=== PATIENT | male | born 2000 | race Caucasian/White ===

== ENCOUNTER 2019-11-13 06:19 | Emergency (ER) | payer OTHER ==
--- OUTSIDE RECORDS SUMMARY | 2019-11-13 06:20 | XMS REPORT | Continuity of Care Document ---
:2000 Author Organization [facility] t Address [address] [place] [address] Care Team Providers Name Role Phone Jenniffer FERMIN Attending Clinician Problems This patient has no known problems. Allergies, Adverse Reactions, Alerts This patient has no known allergies or adverse reactions. Medications This patient has no known medications. Procedures This patient has no known procedures. Encounters Start End Encounter Admission Attending Care Care Encounter Source Date/Time Date/Time Type Type Clinicians Facility Department ID 2019-08-11 2019-08-[id number] 09:30:03 23:59:00 Encounter [facility] [id number] MEDICAL [id number] [place] [id number] Results Test Description Test Time Test Comments Results Result Comments Source Thyroid Stimulating Hormone 2019-08-12 08:27:37 Test Item Value Reference Range Interpretation Comme nts TSH (test code = TSH) 1.190 mIU/mL 0.270-4.200 Lipid [id number] 08:27:26 Test Item Value Reference Range Interpretation Comments Cholesterol Total 151 mg/dL 0-200 RISK OF HE ART (test code = DISEASEPublishe d by Cholesterol Total) [place] [employer] Norma lyte Optimal Borderl ine Increased RiskC HOL <200 200-239 >2 40TRIG <150 150-199 >2 00HDL Male >60 <40H DL Female >60 <5 0LDL <100 130-159 >1 60LDL Near optimal is 100-129 Triglycerides (test 100 mg/dL 9-200 code = Triglycerides) HDL (test code = HDL) 72 mg/dL 40-60 H LDL (test code = LDL) 59 mg/dL 0-130 The eq uation being used in this calcula tion is LDL = (Chol - H DL) - (Trig / 5) VLDL (test code = 20 mg/dL 5-40 The equati on being used VLDL) in this calcula tion is VLDL = Trig / 5 Chol/HDL (test code = 2.1 ratio 0.0-5.0 Chol/HDL) LDL/HDL Ratio (test 1 N The equa tion being used code = LDL/HDL Ratio) in thi s calculation is LDL/HDL Ratio=L DL Calc/HDL Chol RPR [id number] 11:15:55 Test Item Value Reference Range Interpretation Comments RPR Qual (test code = RPR Qual) Non-Reactive Non-Reactive Reactive Control (test code = Reactive Reactive Control) Weak Reactive Control (test Weak Reactive code = Weak Reactive Control) Non-Reactive Control (test code Non-Reactive = Non-Reactive Control) Lot # (test code = Lot #) [id number] Expiration Dt (test code = 05-29-20 N Expiration Dt) Alcohol [id number] 05:20:46 Test Item Value Reference Range Interpretation Comments Ethanol Level (test 0.11 g/dL 0.00-0.01 H Intoxica hardeep 0.080 g/dL code = Ethanol or more Level) Ethanol Inst (test 113 N code = Ethanol Inst) IG [id number] 02:34:13 Test Item Value Reference Range Interpretation Comments IG (test code = IG) 0.3 % 0.0-5.0 IG Abs (test code = IG Abs) 0 x10 N Complete Blood Count with [id number] 02:34:12 Test Item Value Reference Range Interpretation Comments WBC (test code = WBC) 7.2 x10 4.4-10.5 RBC (test code = RBC) 4.38 x10 4.10-5.70 Hgb (test code = Hgb) 14.5 g/dL 13.4-17.4 MCV (test code = MCV) 97.30 fL 80.00-100.00 Hct (test code = Hct) 42.6 % 38.7-52.0 MCHC (test code = 34.00 g/dL 32.00-37.50 MCHC) RDW CV (test code = 12.4 % 11.5-14.5 RDW CV) MCH (test code = MCH) 33.1 pg 27.0-32.5 H Platelets (test code = 317.0 x10 140.0-440.0 Platelets) MPV (test code = MPV) 10.2 fL N Slide Review (test Auto Auto Result cr eated by code = Slide Review) GL_SJM_ SLIDE_REV_AUTO nRBC (test code = 0 N nRBC) NRBC Abs (test code = 0.00 x10 N NRBC Abs) IPF (test code = IPF) 0 % N Automated [id number] 02:34:12 Test Item Value Reference Range Interpretation Comments Neutro Auto (test code = Neutro 53.1 % 36.0-70.0 Auto) Lymph Auto (test code = Lymph Auto) 33.6 % 12.0-44.0 [place] Auto (test code = [place] Auto) 11.6 % 0.0-11.0 H Eos, Auto (test code = Eos, Auto) 0.4 % 0.0-7.0 Basophil Auto (test code = Basophil 1.0 % 0.0-2.0 Auto) Neutro Absolute (test code = Neutro 3.8 x10 1.6-7.4 Absolute) Lymph Absolute (test code = Lymph 2.41 x10 .50-4.60 Absolute) [place] Absolute (test code = [place] .83 x10 .00-1.20 Absolute) Eos Absolute (test code = Eos 0.03 x10 0.00-0.74 Absolute) Baso Absolute (test code = Baso 0.07 x10 0.00-0.21 Absolute) Comprehensive Metabolic [id number] 02:24:27 Test Item Value Reference Range Interpretation Comments Sodium Level (test code = Sodium 144.0 mmol/L 135.0-145.0 Level) Potassium Level (test code = 4.3 mmol/L 3.5-5.1 Potassium Level) Chloride Level (test code = 103 mmol/L 98-105 Chloride Level) CO2 (test code = CO2) 23 mmol/L 22-29 Anion Gap (test code = Anion 18 mmol/L 7-16 H Gap) BUN (test code = BUN) 11.80 mg/dL 6.00-20.00 Creatinine Level (test code = 0.70 mg/dL 0.70-1.20 Creatinine Level) BUN/Creat Ratio (test code = 17 N BUN/Creat Ratio) Glucose Level (test code = 98 mg/dL 70-115 Glucose Level) Calcium Level (test code = 9.5 mg/dL 8.3-10.5 Calcium Level) Alk Phos (test code = Alk Phos) 95 U/L 40-129 Bilirubin Total (test code = 0.2 mg/dL 0.1-0.9 Bilirubin Total) Albumin Level (test code = 4.9 g/dL 3.5-5.2 Albumin Level) Protein Total (test code = 7.8 g/dL 6.4-8.3 Protein Total) ALT (test code = ALT) 19 U/L 1-41 AST (test code = AST) 37 U/L 1-40 Globulin (test code = Globulin) 2.9 g/dL 2.9-3.1 A/G Ratio (test code = A/G 1.7 ratio N Ratio) Comprehensive Metabolic [id number] 02:24:27 Test Item Value Reference Range Interpretation Comments Sodium Level (test 144.0 mmol/L 135.0-145.0 code = Sodium Level) Potassium Level 4.3 mmol/L 3.5-5.1 (test code = Potassium Level) Chloride Level (test 103 mmol/L 98-105 code = Chloride Level) CO2 (test code = 23 mmol/L 22-29 CO2) Anion Gap (test code 18 mmol/L 7-16 H = Anion Gap) BUN (test code = 11.80 mg/dL 6.00-20.00 BUN) Creatinine Level 0.70 mg/dL 0.70-1.20 (test code = Creatinine Level) BUN/Creat Ratio 17 N (test code = BUN/Creat Ratio) Glucose Level (test 98 mg/dL 70-115 code = Glucose Level) Calcium Level (test 9.5 mg/dL 8.3-10.5 code = Calcium Level) Alk Phos (test code 95 U/L 40-129 = Alk Phos) Bilirubin Total 0.2 mg/dL 0.1-0.9 (test code = Bilirubin Total) Albumin Level (test 4.9 g/dL 3.5-5.2 code = Albumin Level) Protein Total (test 7.8 g/dL 6.4-8.3 code = Protein Total) ALT (test code = 19 U/L 1-41 ALT) AST (test code = 37 U/L 1-40 AST) Globulin (test code 2.9 g/dL 2.9-3.1 = Globulin) A/G Ratio (test code 1.7 ratio N = A/G Ratio) eGFR AA (test code = >60 N eGFR (e stimated eGFR AA) mL/min/1.73 m2 Glomerular Filtration Rate ) is an estimated va lue, calculated from the patient's serum creatinine usin g the MDRD equation. It is NOT the patient 's actual GFR. The eGFR provides a more clinically usef ul measure of kidn ey disease than se rum creatinine alone.This calculation tai es sex and race in to account, if the information is provided. If th e race is not provided, and t he patient is -Adelaida n, multiply by 1.2 12. If sex is not provided, and t he patient is fema le, multiply by 0.7 42. Results for pat ients <18 years of ag e have not been validated by th e MDRD study and should be interpreted wit h caution. eGFR R esult Interpretation: eGFR > or = 60 is in the Normal RangeeGF R < 60 may mean kid salina diseaseeGFR < 1 5 may mean kidney failure Rang es recommended by the National Kidney Foundation, http://nkdep.ni h.gov Alcohol [id number] 02:24:27 Test Item Value Reference Range Interpretation Comments Ethanol Level (test 0.22 g/dL 0.00-0.01 H Intoxica hardeep 0.080 g/dL code = Ethanol or more Level) Ethanol Inst (test 219 N code = Ethanol Inst) Comprehensive Metabolic [id number] 02:24:27 Test Item Value Reference Range Interpretation Comments Sodium Level (test 144.0 mmol/L 135.0-145.0 code = Sodium Level) Potassium Level 4.3 mmol/L 3.5-5.1 (test code = Potassium Level) Chloride Level (test 103 mmol/L 98-105 code = Chloride Level) CO2 (test code = 23 mmol/L 22-29 CO2) Anion Gap (test code 18 mmol/L 7-16 H = Anion Gap) BUN (test code = 11.80 mg/dL 6.00-20.00 BUN) Creatinine Level 0.70 mg/dL 0.70-1.20 (test code = Creatinine Level) BUN/Creat Ratio 17 N (test code = BUN/Creat Ratio) Glucose Level (test 98 mg/dL 70-115 code = Glucose Level) Calcium Level (test 9.5 mg/dL 8.3-10.5 code = Calcium Level) Alk Phos (test code 95 U/L 40-129 = Alk Phos) Bilirubin Total 0.2 mg/dL 0.1-0.9 (test code = Bilirubin Total) Albumin Level (test 4.9 g/dL 3.5-5.2 code = Albumin Level) Protein Total (test 7.8 g/dL 6.4-8.3 code = Protein Total) ALT (test code = 19 U/L 1-41 ALT) AST (test code = 37 U/L 1-40 AST) Globulin (test code 2.9 g/dL 2.9-3.1 = Globulin) A/G Ratio (test code 1.7 ratio N = A/G Ratio) eGFR AA (test code = >60 N eGFR (e stimated eGFR AA) mL/min/1.73 m2 Glomerular Filtration Rate ) is an estimated va lue, calculated from the patient's serum creatinine usin g the MDRD equation. It is NOT the patient 's actual GFR. The eGFR provides a more clinically usef ul measure of kidn ey disease than se rum creatinine alone.This calculation tai es sex and race in to account, if the information is provided. If th e race is not provided, and t he patient is -Adelaida n, multiply by 1.2 12. If sex is not provided, and t he patient is fema le, multiply by 0.7 42. Results for pat ients <18 years of ag e have not been validated by th e MDRD study and should be interpreted wit h caution. eGFR R esult Interpretation: eGFR > or = 60 is in the Normal RangeeGF R < 60 may mean kid salina diseaseeGFR < 1 5 may mean kidney failure Rang es recommended by the National Kidney Foundation, http://nkdep.ni h.gov eGFR Non-AA (test >60.00 N eGFR (teetee mated code = eGFR Non-AA) mL/min/1.73 m2 Glomer ular Filtration Rate ) is an estimated va lue, calculated from the patient's serum creatinine usin g the MDRD equation. It is NOT the patient 's actual GFR. The eGFR provides a more clinically usef ul measure of kidn ey disease than se rum creatinine alone.This calculation tai es sex and race in to account, if the information is provided. If th e race is not provided, and t he patient is -Adelaida n, multiply by 1.2 12. If sex is not provided, and t he patient is fema le, multiply by 0.7 42. Results for pat ients <18 years of ag e have not been validated by th e MDRD study and should be interpreted wit h caution. eGFR R esult Interpretation: eGFR > or = 60 is in the Normal RangeeGF R < 60 may mean kid salina diseaseeGFR < 1 5 may mean kidney failure Rang es recommended by the National Kidney Foundation, http://nkdep.ni h.gov Urine Drug [id number] 02:14:57 Test Item Value Reference Range Interpretation Comments Amphetamine Screen Ur Negative Negative (test code = Amphetamine Screen Ur) Barbiturate Screen Ur Negative Negative (test code = Barbiturate Screen Ur) Benzodiazepines Ur (test Negative Negative code = Benzodiazepines Ur) Cocaine Screen Ur (test POSITIVE Negative A code = Cocaine Screen Ur) U Methadone Scr (test Negative Negative code = U Methadone Scr) Opiate Screen Ur (test Negative Negative code = Opiate Screen Ur) U PCP Scrn (test code = Negative Negative U PCP Scrn) Cannabinoid Screen Ur Negative Negative (test code = Cannabinoid Screen Ur) U TCA (test code = U Negative Negative The res ults of all TCA) drug screen giuseppe ts are only preliminar y. Clinical consideration a nd professional ju dgment should be appli ed to any drug of abu se test result, particularly wh en preliminary pos itive results are obt ained. Please order a separate confir matory test if desired . Urinalysis with Culture, if [id number] 01:40:24 Test Item Value Reference Range Interpretation Comments UA Color (test code = YELLO Yellow UA Color) UA Appear (test code = CLEAR Clear UA Appear) UA pH (test code = UA 5 N pH) UA Spec Grav (test 1.007 1.001-1.035 code = UA Spec Grav) UA Glucose (test code NEG Negative = UA Glucose) UA Bili (test code = NEG Negative UA Bili) UA Ketones (test code NEG Negative = UA Ketones) UA Blood (test code = NEG Negative UA Blood) UA Protein (test code NEG Negative = UA Protein) UA Urobilinogen (test 0.2 mg/dL N code = UA Urobilinogen) UA Nitrite (test code NEG Negative = UA Nitrite) UA Leuk Est (test code NEG Negative = UA Leuk Est) UA Micro Ind? (test Not Indicated Not Indicated Result created by code = UA Micro Ind?) rule [id number] _IN D
[2019-11-13] MEDS ORDERED: RSI MEDICATION KIT IV ONE (06:31)
[2019-11-13] MEDS ORDERED: NA CHLORIDE 0.9% 2,000 ML ONE (06:33)
[2019-11-13 06:40] LABS: Basophils % 0.4 % (0-1.3); Hematocrit 41.9 % (39.6-49.0); Lymphocytes % 25.6 % (15.3-44.8); MPV 8.5 fL (7.6-11.3); RBC Red Blood Cell Count 4.34 M/uL (4.33-5.43)
[2019-11-13] MEDS ORDERED: ONDANSETRON 4 MG/2 ML VIAL ONE (06:42)
[2019-11-13] MEDS ORDERED: MORPHINE 2 MG/ML SYR ONE (06:42)
[2019-11-13 06:52] LABS: BUN Blood Urea Nitrogen 7 mg/dL (7-18); Bicarbonate 23 mmol/L (21-32); Glucose Level 86 mg/dL (74-106); Potassium 3.9 mmol/L (3.5-5.1); Sodium Level 142 mmol/L (136-145)
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
[2019-11-13 07:19] LABS: Protime INR 0.95
[2019-11-13] MEDS ORDERED: LIDOCAINE 1% MPF 30 ML VIAL ONE (07:25)
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
[2019-11-13] MEDS ORDERED: TETANUS & DIPHTHERIA TOX,ADULT 0.5 ML VIAL ONE (09:12)
[2019-11-13] MEDS ORDERED: FENTANYL CITR 100 MCG/2 ML ONE (09:27)
[2019-11-13 09:47] VITALS: O2SAT 98
[2019-11-13 09:50] VITALS: BP 138/97
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
== END 2019-11-13 09:39 | disposition home or self-care (01) ==
LOC: ER 06:19
PROC: 0JQ60ZZ Repair Chest Subcutaneous Tissue and Fascia, Open Approach (ICD-10-PCS; principal; 2019-11-13)
DX: S21.112A Laceration without foreign body of left front wall of thorax without penetration into thoracic cavity, initial encounter (principal); X99.1XXA Assault by knife, initial encounter; J45.909 Unspecified asthma, uncomplicated; Z23 Encounter for immunization
CPT/HCPCS: 85025; 80048; 36415; 80320; 86900; 86850; 85610; 86901; 83605; 70450; 72125; 71260; 74177; 71045; 90714; 12002; Q9967; J3010; J2270; J7030; J2405; 90471; 99291; 99292

== ENCOUNTER 2020-10-30 17:06 | Emergency (ER) | payer BC, OTHER ==
--- OUTSIDE RECORDS SUMMARY | 2020-10-30 17:09 | XMS REPORT | Continuity of Care Document ---
:2000 Author Organization [facility] t Address [address] [place] [address] Care Team Providers Name Role Phone BRADLEY Attending Clinician Unavailable Jenniffer FERMIN Attending Clinician Payers Payer Name Policy Type Policy Number Effective Date Expiration Date S pancho BCBSTX PPO [id number] 2020 00:00:00 2024 00:00:00 Problems This patient has no known problems. Allergies, Adverse Reactions, Alerts This patient has no known allergies or adverse reactions. Medications This patient has no known medications. Procedures This patient has no known procedures. Encounters Start End Encounter Admission Attending Care Care Encounter Source Date/Time Date/Time Type Type Clinicians Facility Department ID 2020-10-20 Outpatient BRADLEY [facility] [id number] [place] 16:28:18 [facility] 2019-08-11 [id number] 09:30:03 23:59:00 Encounter Panda SPARROW [id number] [facility] [id number] [place] [id number] Results Test Description Test Time Test Comments Results Result Comments Source Thyroid Stimulating Hormone 2019-08-12 08:27:37 Test Item Value Reference Range Interpretation Comme nts TSH (test code = TSH) 1.190 mIU/mL 0.270-4.200 Lipid [id number] 08:27:26 Test Item Value Reference Range Interpretation Comments Cholesterol Total 151 mg/dL 0-200 RISK OF HE ART (test code = DISEASEPublishe d by Cholesterol Total) [place] [employer] Norma lyte Optimal Borderl ine [...] is LDL/HDL Ratio=L DL Calc/HDL Chol RPR [id number] 11:15:55 Test Item Value Reference Range Interpretation Comments RPR Qual (test code = RPR Qual) Non-Reactive Non-Reactive Reactive Control (test code = Reactive Reactive Control) Weak Reactive Control (test Weak Reactive code = Weak Reactive Control) Non-Reactive Control (test code Non-Reactive = Non-Reactive Control) Lot # (test code = Lot #) [id number] Expiration Dt (test code = 05-29-20 N Expiration Dt) Alcohol [id number] 05:20:46 Test Item Value Reference Range Interpretation Comments Ethanol Level (test 0.11 g/dL 0.00-0.01 H Intoxica hardeep 0.080 g/dL code = Ethanol or more Level) Ethanol Inst (test 113 N code = Ethanol Inst) IG [id number] 02:34:13 Test Item Value Reference Range Interpretation Comments IG (test code = IG) 0.3 % 0.0-5.0 IG Abs (test code = IG Abs) 0 x10 N Complete Blood Count with [id number] 02:34:12 Test Item Value Reference Range Interpretation [...] code = IPF) 0 % N Automated [id number] 02:34:12 Test Item Value Reference Range Interpretation Comments Neutro Auto (test code = Neutro 53.1 % 36.0-70.0 Auto) Lymph Auto (test code = Lymph Auto) 33.6 % 12.0-44.0 [place] Auto (test code = [place] Auto) 11.6 % 0.0-11.0 H Eos, Auto (test code = Eos, Auto) 0.4 % 0.0-7.0 Basophil Auto (test code = Basophil 1.0 % 0.0-2.0 Auto) Neutro Absolute (test code = Neutro 3.8 x10 1.6-7.4 Absolute) Lymph Absolute (test code = Lymph 2.41 x10 .50-4.60 Absolute) [place] Absolute (test code = [place] .83 x10 .00-1.20 Absolute) Eos Absolute (test code = Eos 0.03 x10 0.00-0.74 Absolute) Baso Absolute (test code = Baso 0.07 x10 0.00-0.21 Absolute) Comprehensive Metabolic [id number] 02:24:27 Test Item Value Reference Range Interpretation [...] A/G 1.7 ratio N Ratio) Comprehensive Metabolic [id number] 02:24:27 Test Item Value Reference Range Interpretation [...] the National Kidney Foundation, http://nkdep.ni h.gov Alcohol [id number] 02:24:27 Test Item Value Reference Range Interpretation Comments Ethanol Level (test 0.22 g/dL 0.00-0.01 H Intoxica hardeep 0.080 g/dL code = Ethanol or more Level) Ethanol Inst (test 219 N code = Ethanol Inst) Comprehensive Metabolic [id number] 02:24:27 Test Item Value Reference Range Interpretation [...] ag e have not been validated by [facility] MDRD study and should be interpreted wit [...] account, if the information is provided. If e race is not provided, and t he patient is -Adelaida n, multiply by 1.2 12. If sex is not provided, and t he patient is fema le, multiply by 0.7 42. Results for pat ients <18 years of ag e have not been validated by [facility] MDRD study and should be interpreted wit h caution. eGFR R esult Interpretation: eGFR > or = 60 is in the Normal RangeeGF R < 60 may mean kid salina diseaseeGFR < 1 5 may mean kidney failure Rang es recommended by the National Kidney Foundation, http://nkdep.ni h.gov Urine Drug [id number] 02:14:57 Test Item Value Reference Range Interpretation [...] if desired . Urinalysis with Culture, if [id number] 01:40:24 Test Item Value Reference Range Interpretation [...]
[2020-10-30] MEDS ORDERED: MORPHINE 4 MG/ML SYR ONE (17:51)
[2020-10-30] MEDS ORDERED: ONDANSETRON 4 MG/2 ML VIAL ONE (17:51)
[2020-10-30 17:56] LABS: Absolute Lymphocytes (CBC) 1.4 K/uL (0.7-4.9); Basophils % 0.8 % (0-1.3); Hematocrit 33.4 % (39.6-49.0); Lymphocytes % 23.7 % (15.3-44.8); MPV 8.1 fL (7.6-11.3); RBC Red Blood Cell Count 3.52 M/uL (4.33-5.43)
[2020-10-30 18:07] LABS: BUN Blood Urea Nitrogen 8 mg/dL (7-18); Bicarbonate 28 mmol/L (21-32); Glucose Level 82 mg/dL (74-106); Potassium 3.9 mmol/L (3.5-5.1); Sodium Level 145 mmol/L (136-145)
[2020-10-30 18:25] LABS: Protime INR 1.05
[2020-10-30] MEDS ORDERED: HYDROCODONE/APAP 10/325 TAB ONE (18:36)
--- NOTE | 2020-10-30 18:45 | RAD REPORT ---
EXAM DESCRIPTION: CT - Chest Abdomen Pelvis W Cont - 10/30/2020 6:31 pm CLINICAL HISTORY: Chest and abdomen pain. right flank pain COMPARISON: <Comparisons> TECHNIQUE: Approximately 100 mL nonionic IV contrast was administered to the patient. All CT scans are performed using dose optimization technique as appropriate and may include automated exposure control or mA/KV adjustment according to patient size. FINDINGS: The lungs are clear.No pleural or pericardial effusion.No intrathoracic adenopathy. The liver, spleen, pancreas, adrenal glands and kidneys are within normal limits. No bowel obstruction, free air, free fluid or abscess. Appendectomy. No pathologic lymphadenopathy i n the abdomen or pelvis. Small amount of air is seen the urinary bladder. Subacute right anterolateral rib fractures noted with callus formation. IMPRESSION: Subacute anterolateral right rib fractures with callus formation. No acute abnormality detected. Small amount of air within the urinary bladder is nonspecific. This can be related to recent instrume ntation or infection.
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
[2020-10-30] MEDS ORDERED: CLINDAMYCIN 900MG/D5W 900 MG/50 ML IVPB IV ONE (19:30)
[2020-10-30 20:23] VITALS: TEMP 98.3
[2020-10-30 20:25] VITALS: BP 118/70; O2SAT 99
== END 2020-10-30 20:08 | disposition home or self-care (01) ==
LOC: ER 17:06
DX: S22.41XA Multiple fractures of ribs, right side, initial encounter for closed fracture (principal); H57.11 Ocular pain, right eye; R22.9 Localized swelling, mass and lump, unspecified; F17.210 Nicotine dependence, cigarettes, uncomplicated
CPT/HCPCS: 85025; 80048; 36415; 85610; 80329; 70480; 71260; 76377; 74177; 96375; 96374; 99284; Q9967; J2405

== ENCOUNTER 2021-10-06 02:42 | Emergency (ER) | payer BC ==
--- OUTSIDE RECORDS SUMMARY | 2021-10-06 02:46 | XMS REPORT | Continuity of Care Document ---
:[address] [facility] t Address [address] [place] [place] [address] Care Team Providers Name Role Phone RAMIRO COLLADO Attending Clinician Unavailable BRADLEY Attending Clinician Unavailable RICHY RAMIREZ Attending Clinician Unavailable MAURICE JIMENEZ Attending Clinician Unavailable MATEO JAIME Attending Clinician Unavailable ROSHAN KATZ Attending Clinician Unavailable Vikas FERMIN Attending Clinician Mario Rolle Attending Clinician Unavailable VIKAS Attending Clinician Unavailable MATEO JAIME Admitting Clinician Unavailable RAMIRO COLLADO Admitting Clinician Unavailable Mario Rolle Admitting Clinician Unavailable Payers Payer Name Policy Type Policy Number Effective Date Expiration Date Nahun deleon BCBSTX PPO [id number] 2020 00:00:00 Problems This patient has no known problems. Allergies, Adverse Reactions, Alerts Allergy Allergy Status Severity Reaction(s) Onset Inactive Treating Comm ents Source Name Type Date Date Clinician NO KNOWN Drug Active NPI:183 ALLERGIE Class [id number] S No Known Drug Active [facility] No Known Drug Active [facility] [place] No [facility] No Known Drug [facility] No [facility] Drug [facility] No Known Drug [facility] No Known Drug [facility] NO KNOWN Allergy Active NPI:118 ALLERGIE [id number] S Social History Social Habit Start Date Stop Date Quantity Comments Source History of tobacco Chews Tobacco NPI :[id number] use Sex Assigned At NPI:[id number] Alcohol intake 2018-04-07 2018-04-07 NPI:[id number] 00:00:00 00:00:00 Smoking Status Start Date Stop Date Source Never smoker Medications Ordered Filled Start Stop Current Ordering Indication Dosage Frequency Signature Comments Components Source Medication Medication Date Date Medication? Clinician (SIG) Name Name PROAIR HFA 2017-05 Yes INHALE 1 NPI :[id number] 90 0-11 PUFF BY [id number] mcg/actuati 00:00: MOUTH ONCE on inhaler 00 DAILY NEEDED FOR WHEEZING Vital Signs Vital Name Observation Time Observation Value Comments Source HEIGHT 2021-09-06 02:14:00 175.3 cm WEIGHT 2021-09-06 02:14:00 77.111 kg Height/Length Measured 2021-06-16 09:35:24 175 cm Weight Dosing 2021-06-16 09:35:24 71.00 kg Height/Length Measured 2021-06-16 09:35:21 175 cm Weight Dosing 2021-06-16 09:35:21 71.00 kg Height/Length Measured 2021-06-16 09:34:40 175 cm Weight Dosing 2021-06-16 09:34:40 71.00 kg Height/Length Measured 2021-06-16 09:34:39 175 cm Weight Dosing 2021-06-16 09:34:39 71.00 kg Height/Length Measured 2021-06-16 09:34:19 175 cm Weight Dosing 2021-06-16 09:34:19 71.00 kg Height/Length Measured 2021-06-16 09:33:45 175 cm Weight Dosing 2021-06-16 09:33:45 71.00 kg Height/Length Measured 2021-06-16 09:33:44 175 cm Weight Dosing 2021-06-16 09:33:44 71.00 kg Height/Length Measured 2021-06-16 09:33:43 175 cm Weight Dosing 2021-06-16 09:33:43 71.00 kg Height/Length Measured 2021-06-16 09:33:42 175 cm Height/Length Measured 2019-08-11 01:20:30 Procedures This patient has no known procedures. Encounters Start End Encounter Admission Attending Care Care Encounter Source Date/Time Date/Time Type Type Clinicians Facility Department ID 2020-11-20 Outpatient HEAVEN [facility] [id number] NPI:[id number] 01:04:52 CLEMENTE [id number] 2020-10-20 Outpatient BRADLEY [facility] [id number] NPI:[id number] 16:28:18 DILLON [id number] 2021-09-06 2021-09-06 Emergency ER RAMIREZ, [facility] Emergency [id number] [facility] 02:56:00 12:30:00 LEENA 2021-05-19 2021-05-19 Outpatient BARBARA, [facility] [id number] [facility] 10:44:00 23:59:00 DANAE 2021-03-19 2021-03-19 Outpatient BARBARA, [facility] [id number] [facility] 07:58:00 23:59:00 DANAE 2020-11-26 2020-11-27 Inpatient Mary JAIME [facility] [address] [facility] 16:56:00 15:00:00 MAKSIM Jimenez [facility] 2020-10-17 2020-10-26 Inpatient Evaristo KATZ, [facility] [id number] [facility] 19:32:00 15:00:00 WILL 2019-08-11 2019-08-11 [place] [id number] NPI:183 09:30:03 23:59:00 Encounter Panda CHIN [id number] [facility] [id number] [place] [id number] 2019-08-11 2019-08-11 [place] [id number] 09:30:03 23:59:00 Encounter Maxwellvivek [facility] [id number] MEDICAL [id number] [place] [id number] 2019-08-11 2019-08-11 Emergency [facility] [id number] 01:07:00 01:07:00 [facility] 2019-08-11 2019-08-11 Emergency 1 Sariah, [facility] [id number] 01:07:00 01:07:00 [id number] [facility] 2019-08-11 2019-08-11 Outpatient R VIKAS, [facility] [id number] NPI:[id number] 00:00:00 00:00:00 [place] [id number] Results Test Description Test Time Test Comments Results Result Comments Source Thyroid Stimulating Hormone 2019-08-12 08:27:37 Test Item Value Reference Range Interpretation Comme nts TSH (test code = TSH) 1.190 mIU/mL 0.270-4.200 Lipid [id number] 08:27:26 Test Item Value Reference Range Interpretation Comments Cholesterol Total 151 mg/dL 0-200 RISK OF HE ART (test code = DISEASEPublishe d by Cholesterol Total) [place] [employer] Norma lyte Optimal Borderl ine [...] is LDL/HDL Ratio=L DL Calc/HDL Chol RPR [id number] 11:15:55 Test Item Value Reference Range Interpretation Comments RPR Qual (test code = RPR Qual) Non-Reactive Non-Reactive Reactive Control (test code = Reactive Reactive Control) Weak Reactive Control (test Weak Reactive code = Weak Reactive Control) Non-Reactive Control (test code Non-Reactive = Non-Reactive Control) Lot # (test code = Lot #) [id number] Expiration Dt (test code = 05-29-20 N Expiration Dt) Alcohol [id number] 05:20:46 Test Item Value Reference Range Interpretation Comments Ethanol Level (test 0.11 g/dL 0.00-0.01 H Intoxica hardeep 0.080 g/dL code = Ethanol or more Level) Ethanol Inst (test 113 N code = Ethanol Inst) IG [id number] 02:34:13 Test Item Value Reference Range Interpretation Comments IG (test code = IG) 0.3 % 0.0-5.0 IG Abs (test code = IG Abs) 0 x10 N Complete Blood Count with [id number] 02:34:12 Test Item Value Reference Range Interpretation [...] code = IPF) 0 % N Automated [id number] 02:34:12 Test Item Value Reference Range Interpretation Comments Neutro Auto (test code = Neutro 53.1 % 36.0-70.0 Auto) Lymph Auto (test code = Lymph Auto) 33.6 % 12.0-44.0 Borden Auto (test code = Borden Auto) 11.6 % 0.0-11.0 H Eos, Auto (test code = Eos, Auto) 0.4 % 0.0-7.0 Basophil Auto (test code = Basophil 1.0 % 0.0-2.0 Auto) Neutro Absolute (test code = Neutro 3.8 x10 1.6-7.4 Absolute) Lymph Absolute (test code = Lymph 2.41 x10 .50-4.60 Absolute) Borden Absolute (test code = Borden .83 x10 .00-1.20 Absolute) Eos Absolute (test code = Eos 0.03 x10 0.00-0.74 Absolute) Baso Absolute (test code = Baso 0.07 x10 0.00-0.21 Absolute) Comprehensive Metabolic [id number] 02:24:27 Test Item Value Reference Range Interpretation [...] A/G 1.7 ratio N Ratio) Comprehensive Metabolic [id number] 02:24:27 Test Item Value Reference Range Interpretation [...] the National Kidney Foundation, http://nkdep.ni h.gov Alcohol [id number] 02:24:27 Test Item Value Reference Range Interpretation Comments Ethanol Level (test 0.22 g/dL 0.00-0.01 H Intoxica hardeep 0.080 g/dL code = Ethanol or more Level) Ethanol Inst (test 219 N code = Ethanol Inst) Comprehensive Metabolic [id number] 02:24:27 Test Item Value Reference Range Interpretation [...] ag e have not been validated by e MDRD study and should be interpreted [...] not provided, and t he patient is femkeesha le, multiply by 0.7 42. Results for pat ients <18 years of ag e have not been validated by e MDRD study and should be interpreted wit h caution. eGFR R esult Interpretation: eGFR > or = 60 is in the Normal RangeeGF R < 60 may mean kid salina diseaseeGFR < 1 5 may mean kidney failure Rang es recommended by the National Kidney Foundation, http://nkdep.ni h.gov Urine Drug [id number] 02:14:57 Test Item Value Reference Range Interpretation [...] if desired . Urinalysis with Culture, if [id number] 01:40:24 Test Item Value Reference Range Interpretation [...]
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
[2021-10-06] MEDS ORDERED: HYDROCODONE/APAP 5/325 MG TAB ONE (04:12)
[2021-10-06 05:49] VITALS: BP 111/63; TEMP 98.3; O2SAT 97
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
== END 2021-10-06 04:15 | disposition home or self-care (01) ==
LOC: ER 02:42
DX: S06.0X0A Concussion without loss of consciousness, initial encounter (principal); V49.50XA Passenger injured in collision with unspecified motor vehicles in traffic accident, initial encounter; Z87.820 Personal history of traumatic brain injury; F17.210 Nicotine dependence, cigarettes, uncomplicated
CPT/HCPCS: 70450; 72125; 99284

== ENCOUNTER 2024-05-31 18:32 | Emergency (ER) | payer SELFPAY ==
[2024-05-31] MEDS ORDERED: ONDANSETRON 4 MG/2 ML VIAL ONE (20:04)
[2024-05-31] MEDS ORDERED: NA CHLORIDE 0.9% 1,000 ML ONE (20:04)
[2024-05-31] MEDS ORDERED: MORPHINE 4 MG/ML SYR ONE (20:04)
[2024-05-31 20:05] LABS: Absolute Eosinophils 0.1 K/uL (0-0.5); Absolute Lymphocytes (CBC) 1.7 K/uL (0.7-4.9); Absolute Monocytes 1.4 K/uL (0.1-1.3); Absolute Neutrophil 6.5 K/uL (1.8-8.0); Basophils % 0.5 % (0-1.3); Eosinophils % 0.7 % (0-4.4); Hematocrit 48.9 % (39.6-49.0); Lymphocytes % 17.7 % (15.3-44.8); MCHC 34.7 g/dL (32.0-36.0); MPV 8.5 fL (7.6-11.3); Monocytes % 14.3 % (3.3-12.3); Neutrophils % 66.8 % (41.7-73.7); Nucleated Red Blood Cells % 0.1 % (0-0); Platelets 212 thou/uL (152-406); RBC Red Blood Cell Count 5.14 M/uL (4.33-5.43); Red Cell Distribution Width 13.2 % (12.1-15.2)
[2024-05-31 20:23] LABS: Albumin 3.4 g/dL (3.4-5.0); Albumin/Globulin Ratio 0.8 (1.1-1.8); Anion Gap 11.6 mEq/L (5.0-15.0); Bilirubin Total 0.7 mg/dL (0.2-1.0); Globulin 4.4 g/dL (2.3-3.5); Potassium 3.6 mEq/L (3.5-5.1); Protein, Total 7.8 g/dL (6.4-8.2)
--- NOTE | 2024-05-31 21:16 | RAD REPORT ---
EXAMINATION: CT ABDOMEN AND PELVIS WITH CONTRAST CLINICAL INDICATION: ABD PAIN TECHNIQUE: CT abdomen and pelvis was performed, after the administration of IV contrast, as per [facility] protocol. Axial, sagittal and coronal reconstructions were obtained. One or more of the following dose reduction techniques were used: Automated exposure control, adjustment of the mA and k V according to patient size, and iterative reconstruction. Unless otherwise specified, incidental findings do not require dedicated imaging follow-up. COMPARISON: No prior exam. FINDINGS: LOWER CHEST: The visualized lung bases are clear. LIVER: Mild fatty liver is present. No focal lesion or biliary dilatation is seen. Grossly unremark able gallbladder. SPLEEN: Normal size. No focal lesion. PANCREAS: No mass, ductal dilation, or zeeshan-pancreatic fluid. ADRENALS: Normal; no mass. KIDNEYS: Normal size and contour. No hydronephrosis. Mild perinephric fat stranding bilaterally. GASTROINTESTINAL TRACT: No evidence of free air, significant intra-abdominal free fluid, bowel obstru ction or abscess. Terminal ileum is fluid-filled and dilated to 29 mm. APPENDIX: Appendix surgically absent. LYMPH NODES: No lymphadenopathy. MUSCULOSKELETAL: No acute or suspicious osseous abnormality. ADDITIONAL FINDINGS: None. IMPRESSION: Mild perinephric fat stranding is seen bilaterally, typically clinically insignificant. Correlation f or the possibility pyelonephritis suggested. Dilated terminal ileum is fluid-filled measuring 29 mm. No significant inflammation is seen. Small joanna wel series could be obtained on a nonemergent basis for follow-up. Fatty liver.
[2024-05-31] MEDS ORDERED: KETOROLAC 30 MG/ML INJ ONE (21:27)
[2024-05-31 22:04] LABS: Sqamous Epithelial <5 /HPF (None Seen); Urine Bacteria None Seen /HPF (<20); Urine Bilirubin NEGATIVE (Negative); Urine Blood 1+ (Negative); Urine Clarity Clear (Clear); Urine Color Colorless (Yellow); Urine Culture Reflex Order NOT NEEDED; Urine Glucose NEGATIVE (Negative); Urine Ketones NEGATIVE (Negative); Urine Microscopic Reflex YN ORDER UMIC; Urine Nitrite NEGATIVE (Negative); Urine Protein 1+ (Negative); Urine RBC <5 /HPF (None Seen); Urine Urobilinogen Normal (Normal); Urine WBC <5 /HPF (<5); Urine Yeast (Budding) Trace /HPF (None Seen); Urine pH 6.5 (5.0-7.0)
--- NOTE | 2024-05-31 22:14 | ER ---
Nurse's Notes [facility] Name: Kurt Christianson Age: 24 yrs Sex: Male : 2000 Arrival Date: 05/31/2024 Time: 18:32 Bed 10 Private MD: Diagnosis: Infectious gastroenteritis and colitis, unspecified Presentation: 05/31 19:30 Chief complaint: Patient states: left sided abdominal pain radiating to left back X2 lg3 days and worsening with vomiting. Coronavirus screen: Client denies travel out of the [place] in the last 14 days. At this time, the client does not indicate any symptoms associated with coronavirus-19. Ebola Screen: No symptoms or risks identified at this time. Initial Sepsis Screen: Does the patient meet any 2 criteria? No. Patient's initial sepsis screen is negative. Does the patient have a suspected source of infection? No. Patient's initial sepsis screen is negative. Risk Assessment: Do you want to hurt yourself or someone else? Patient reports no desire to harm self or others. Onset of symptoms was May 29, 2024. 19:30 Method Of Arrival: Ambulatory lg3 19:30 Acuity: ANABEL 3 lg3 Triage Assessment: 19:33 General: Appears in no apparent distress. uncomfortable, Behavior is calm, cooperative. lg3 Pain: Complains of pain in abdomen Pain radiates to back. EENT: No deficits noted. No signs and/or symptoms were reported regarding the EENT system. Neuro: No deficits noted. Brown Agitation-Sedation Scale (RASS): 0 - Alert and Calm Level of Consciousness is awake, alert, obeys commands, Oriented to person, place, time, situation. Cardiovascular: No deficits noted. Denies chest pain, shortness of breath, Capillary refill < 3 seconds Clubbing of nail beds is absent JVD is absent Patient's skin is warm and dry. Respiratory: No deficits noted. Airway is patent Respiratory effort is even, unlabored, Respiratory pattern is regular, symmetrical. GI: Abdomen is round non-distended, Reports lower abdominal pain, upper abdominal pain, cramping, nausea. : No signs and/or symptoms were reported regarding the genitourinary system. Derm: No deficits noted. No signs and/or symptoms reported regarding the dermatologic system. Skin is intact, is healthy with good turgor, Skin is dry, Skin is normal, Skin temperature is warm. Musculoskeletal: No deficits noted. Circulation, motion, and sensation intact. Range of motion: intact in all extremities. Historical: - Allergies: 19:33 NKDA; lg3 - Home Meds: 19:33 Albuterol Inhl [Active]; unknown seizure medication Inhl [Active]; lg3 - PMHx: 19:33 Asthma; Irregular heart rate; HTN (Irregular heart rate); Seizure; TBI; lg3 - PSHx: 19:33 brain surgery; Appendectomy; lg3 - Immunization history:: Adult Immunizations up to date. - Infectious Disease History:: Denies. - Social history:: Smoking status: Patient reports the use of cigarette tobacco products, smokes one pack cigarettes per day. Patient uses alcohol, admits to "couple of beers" a day. street drugs, marijuana. Screenin:09 [facility] ED Fall Risk Assessment (Adult) History of falling in the last 3 months, cp4 including since admission No falls in past 3 months (0 pts) Confusion or Disorientation No (0 pts) Intoxicated or Sedated No (0 pts) Impaired Gait No (0 pts) Mobility Assist Device Used No (0 pt) Altered Elimination No (0 pt) Score/Fall Risk Level 0 - 2 = Low Risk Oriented to surroundings, Maintained a safe environment, Assessed \\T\\ reinforced patient's understanding of fall precautions, Hourly rounding (assess needs \\T\\ fall precautionary measures) done. Abuse screen: Denies threats or abuse. Nutritional screening: No deficits noted. Tuberculosis screening: No symptoms or risk factors identified. Assessment: 20:09 General: Appears in no apparent distress. uncomfortable, Behavior is calm, cooperative, cp4 appropriate for age. Pain: Complains of pain in back and abdomen Pain does not radiate. Pain currently is 8 out of 10 on a pain scale. Neuro: Level of Consciousness is awake, alert, obeys commands, Oriented to person, place, time, situation. Cardiovascular: Patient's skin is warm and dry. Respiratory: Airway is patent Respiratory effort is even, unlabored. GI: Bowel sounds present X 4 quads. Abd is soft and non tender X 4 quads. Parent/caregiver reports the patient having nausea, vomiting. : No signs and/or symptoms were reported regarding the genitourinary system. EENT: No signs and/or symptoms were reported regarding the EENT system. Derm: No signs and/or symptoms reported regarding the dermatologic system. Musculoskeletal: No signs and/or symptoms reported regarding the musculoskeletal system. 06/01 01:10 Reassessment: Patient appears in no apparent distress at this time. Patient and/or vc1 family updated on plan of care and expected duration. Pain level reassessed. Patient is alert, oriented x 3, equal unlabored respirations, skin warm/dry/pink. Patient states feeling better. Patient states symptoms have improved. Vital Signs: 05/31 19:30 BP 153 / 105; Pulse 82; Resp 19; Temp 97.4(TE); Pulse Ox 99% on R/A; Weight 97.52 kg lg3 (R); Height 5 ft. 9 in. (R); Pain 8/10; 06/01 01:09 BP 144 / 109; Pulse 58; Resp 15; Pulse Ox 98% ; Pain 4/10; vc1 05/31 19:30 Body Mass Index 31.75 (97.52 kg, 175.26 cm) lg3 05/31 19:30 Pain Scale: Adult lg3 06/01 01:09 Pain Scale: Adult vc1 ED Course: 05/31 18:35 Patient arrived in ED. mr 18:55 Myriam Zarate PA-C [facility]. sb4 18:55 Bon Massey MD is Attending Physician. sb4 19:33 Triage completed. lg3 19:33 Arm band placed on right wrist. lg3 19:39 Radiology exam delayed due to lab results not completed at this time. (BUN/Creatinine) jc4 IV insertion attempt and/or patient not having appropriate IV at this time. 19:59 Inserted saline lock: 20 gauge in right antecubital area, using aseptic technique. af3 Blood collected. Flushed with 10 mL NS. 20:01 Kari Aguilera is Primary Nurse. cp4 20:09 Bed in low position. Call light in reach. Side rails up X 1. cp4 20:09 No provider procedures requiring assistance completed. cp4 21:04 CT Abd/Pelvis - IV Contrast Only In Process Unspecified. EDMS 21:55 Urine collected: clean catch specimen, clear. cp4 06/01 01:10 Provided Education on: f/u with PCP. vc1 01:10 IV discontinued, intact, bleeding controlled, No redness/swelling at site. Pressure vc1 dressing applied. Administered Medications: 05/31 20:09 Drug: morphine IVP or IV 4 mg IVP once over 4 mins Route: IVP; Infused Over: 4 mins; cp4 Site: right antecubital; 21:10 Follow up: Response: No adverse reaction cp4 20:09 Drug: Ondansetron IVP 4 mg IVP once; over 2 minutes Route: IVP; Site: right antecubital;cp4 21:10 Follow up: Response: No adverse reaction cp4 20:09 Drug: NS 0.9% IV 1000 ml IV at 1000 ml once; to be given as a bolus over 60 minutes cp4 Route: IV; Rate: 1000 ml; Site: right antecubital; 22:52 Follow up: IV Status: Completed infusion cp4 21:30 Drug: Ketorolac IVP 30 mg IVP once Route: IVP; Site: right antecubital; cp4 22:51 Follow up: Response: No adverse reaction; Pain is decreased cp4 22:42 Drug: fentaNYL (PF) IVP 50 mcg IVP once Route: IVP; Site: right antecubital; cp4 23:47 Follow up: Response: No adverse reaction; Pain is decreased cp4 22:43 Drug: Ciprofloxacin IVPB 400 mg 200 ml IVPB once over 60 mins Volume: 200 ml; Route: cp4 IVPB; Infused Over: 60 mins; Site: right antecubital; 23:47 Follow up: Response: No adverse reaction; IV Status: Completed infusion cp4 22:51 Drug: Metoprolol PO 25 mg PO once Route: PO; cp4 23:48 Follow up: Response: No adverse reaction cp4 23:47 Drug: metroNIDAZOLE IVPB 500 mg 100 ml IVPB at 200 ml/hr once over 30 mins Volume: 100 cp4 ml; Route: IVPB; Rate: 200 ml/hr; Infused Over: 30 mins; Site: right antecubital; 06/01 00:30 Follow up: IV Status: Completed infusion; IV Intake: 100ml vc1 Medication: 05/31 20:09 VIS not applicable for this client. cp4 Intake: 06/01 00:30 IV: 100ml; Total: 100ml. vc1 Outcome: 05/31 22:13 Discharge ordered by MD. cardoso 23:06 Discharge ordered by MD. cardoso 06/01 01:10 Discharged to home ambulatory, vc1 Condition: improved Discharge instructions given to patient, Instructed on discharge instructions, follow up and referral plans. medication usage, Demonstrated understanding of instructions, follow-up care, medications, Prescriptions given X 6 01:11 Patient left the ED. vc1 Signatures: Dispatcher [employer] EDDE Ora Lazaro, Anderson Reg mr Able, Analisa, RN RN lg3 Bessy Hernandez RN RN vc1 Myriam Zarate, PA-C PA-C sb4 Kari Aguilera Justin jc4 Monica Verde3
--- NOTE | 2024-05-31 22:14 | EDPHYS ---
Physician Documentation [facility] Name: Kurt Christianson Age: 24 yrs Sex: Male : 2000 Arrival Date: 05/31/2024 Time: 18:32 Bed 10 Private MD: SUELLEN Physician Bon Massey HPI: 06/01 01:09 This 24 yrs old Male presents to ER via Ambulatory with complaints of Abdominal Pain, sb4 Back Pain, Nausea/Vomiting/Diarrhea. 01:09 The patient presents with abdominal pain in the left lower quadrant. Onset: The sb4 symptoms/episode began/occurred yesterday. The symptoms radiate to back. Associated signs and symptoms: Pertinent positives: nausea, vomiting, and diarrhea. The symptoms are described as crampy, sharp. The patient has not experienced similar symptoms in the past, but family has similar symptoms, father. Ate a lot of raw oysters 2 days ago, now has abdominal pain/cramping as well as nausea, vomiting, and diarrhea. Dad has similar symptoms. He describes the pain is similar to when he had appendicitis. Historical: - Allergies: 05/31 19:33 NKDA; lg3 - Home Meds: 19:33 Albuterol Inhl [Active]; unknown seizure medication Inhl [Active]; lg3 - PMHx: 19:33 Asthma; Irregular heart rate; HTN (Irregular heart rate); Seizure; TBI; lg3 - PSHx: 19:33 brain surgery; Appendectomy; lg3 - Immunization history:: Adult Immunizations up to date. - Infectious Disease History:: Denies. - Social history:: Smoking status: Patient reports the use of cigarette tobacco products, smokes one pack cigarettes per day. Patient uses alcohol, admits to "couple of beers" a day. street drugs, marijuana. ROS: 06/01 01:09 Constitutional: Negative for fever, chills, and weight loss, sb4 Abdomen/GI: Positive for abdominal pain, nausea, vomiting, and diarrhea, All other systems are negative, Exam: 01:09 Head/Face: Normocephalic, atraumatic. Eyes: Extra-ocular motions intact. Periorbital sb4 areas with no swelling, redness, or edema. ENT: Mucous membranes moist. Cardiovascular: Regular rate and rhythm with a normal S1 and S2. Respiratory: No increased work of breathing, no retractions or nasal flaring. Skin: Warm, dry with normal turgor. Normal color with no rashes, no lesions, and no evidence of cellulitis. 01:09 Constitutional: The patient appears alert, awake, uncomfortable, 01:09 Abdomen/GI: Inspection: abdomen appears normal, Bowel sounds: normal, Palpation: soft, mild abdominal tenderness, in the left lower quadrant, Vital Signs: 05/31 19:30 BP 153 / 105; Pulse 82; Resp 19; Temp 97.4(TE); Pulse Ox 99% on R/A; Weight 97.52 kg lg3 (R); Height 5 ft. 9 in. (R); Pain 8/10; 06/01 01:09 BP 144 / 109; Pulse 58; Resp 15; Pulse Ox 98% ; Pain 4/10; vc1 05/31 19:30 Body Mass Index 31.75 (97.52 kg, 175.26 cm) lg3 05/31 19:30 Pain Scale: Adult lg3 06/01 01:09 Pain Scale: Adult vc1 MDM: 05/31 19:36 Medical Screening Exam initiated sb4 06/01 01:09 Data reviewed: vital signs, nurses notes, lab test result(s), radiologic studies, and sb4 as a result, I will discharge patient. Historians other than the Patient: Parent: Mother. Care significantly affected by the following chronic conditions: Hypertension. Counseling: I had a detailed discussion with the patient and/or guardian regarding the historical points, exam findings, and any diagnostic results supporting the discharge/admit diagnosis, the presence of at least one elevated blood pressure reading (>120/80) during this emergency department visit, lab results, radiology results, the need for outpatient follow up, for definitive care, to return to the emergency department if symptoms worsen or persist or if there are any questions or concerns that arise at home. ED course: Patient has been moderately hypertensive. States he is to be taking nebivolol but it is very expensive and he cannot afford it. Will trial patient on metoprolol and have him follow-up with primary as soon as possible. Symptoms are most likely a viral gastroenteritis but given that they could be secondary to raw oysters, will treat empirically with antibiotics. 05/31 19:36 Order name: CBC with Diff; Complete Time: 20:07 sb4 05/31 19:36 Order name: CMP; Complete Time: 20:27 sb4 05/31 19:36 Order name: Lipase; Complete Time: 20:27 sb4 05/31 19:36 Order name: Urinalysis w/ reflexes; Complete Time: 22:04 sb4 05/31 19:36 Order name: CT Abd/Pelvis - IV Contrast Only; Complete Time: 21:18 sb4 05/31 19:36 Order name: IV Saline Lock; Complete Time: 19:59 sb4 05/31 19:36 Order name: Labs collected and sent; Complete Time: 19:59 sb4 Administered Medications: 05/31 20:09 Drug: morphine IVP or IV 4 mg IVP once over 4 mins Route: IVP; Infused Over: 4 mins; cp4 Site: right antecubital; 21:10 Follow up: Response: No adverse reaction cp4 20:09 Drug: Ondansetron IVP 4 mg IVP once; over 2 minutes Route: IVP; Site: right antecubital;cp4 21:10 Follow up: Response: No adverse reaction cp4 20:09 Drug: NS 0.9% IV 1000 ml IV at 1000 ml once; to be given as a bolus over 60 minutes cp4 Route: IV; Rate: 1000 ml; Site: right antecubital; 22:52 Follow up: IV Status: Completed infusion cp4 21:30 Drug: Ketorolac IVP 30 mg IVP once Route: IVP; Site: right antecubital; cp4 22:51 Follow up: Response: No adverse reaction; Pain is decreased cp4 22:42 Drug: fentaNYL (PF) IVP 50 mcg IVP once Route: IVP; Site: right antecubital; cp4 23:47 Follow up: Response: No adverse reaction; Pain is decreased cp4 22:43 Drug: Ciprofloxacin IVPB 400 mg 200 ml IVPB once over 60 mins Volume: 200 ml; Route: cp4 IVPB; Infused Over: 60 mins; Site: right antecubital; 23:47 Follow up: Response: No adverse reaction; IV Status: Completed infusion cp4 22:51 Drug: Metoprolol PO 25 mg PO once Route: PO; cp4 23:48 Follow up: Response: No adverse reaction cp4 23:47 Drug: metroNIDAZOLE IVPB 500 mg 100 ml IVPB at 200 ml/hr once over 30 mins Volume: 100 cp4 ml; Route: IVPB; Rate: 200 ml/hr; Infused Over: 30 mins; Site: right antecubital; 06/01 00:30 Follow up: IV Status: Completed infusion; IV Intake: 100ml vc1 Disposition Summary: 05/31/24 23:06 Discharge Ordered Notes: Location: Home(05/31/24 23:06) sb4 Problem: new(05/31/24 23:06) sb4 Symptoms: have improved(05/31/24 23:06) sb4 Condition: Stable(05/31/24 23:06) sb4 Diagnosis - Infectious gastroenteritis and colitis, unspecified(05/31/24 23:06) sb4 Followup: sb4 - With: Emergency Department - When: As needed - Reason: Trouble breathing, Worsening of condition Discharge Instructions: - Discharge Summary Sheet sb4 - Food Choices to Help Relieve Diarrhea, Adult sb4 - Viral Gastroenteritis, Adult sb4 Forms: - Antibiotic Education sb4 - Patient Portal Instructions sb4 - Leadership Thank You Letter sb4 Prescriptions: - Imodium A-D 2 mg Oral tablet - take 0.5 tablet ORAL route every hour as needed for loose stool; do not exceed sb4 total dose of 4 mg per 24 hrs; 10 tablet; Refills: 0, Product Selection Permitted - Flagyl 500 mg Oral Tablet - take 1 tablet ORAL route every 12 hours for 7 days; 14 tablet; Refills: 0, sb4 Product Selection Permitted - Metoprolol Tartrate 25 mg Oral Tablet - take 1 tablet ORAL route 2 times per day with a meal; 20 tablet; Refills: 0, sb4 Product Selection Permitted - Cipro 500 mg Oral Tablet - take 1 tablet ORAL route every 12 hours for 7 days; 14 tablet; Refills: 0, sb4 Product Selection Permitted - dicyclomine 20 mg Oral tablet - take 1 tablet ORAL route 3 times per day; 20 tablet; Refills: 0, Product sb4 Selection Permitted - ondansetron 8 mg Oral Tablet,disintegrating - take 1 tablet ORAL route every 8 hours; 10 tablet; Refills: 0, Product sb4 Selection Permitted Addendum: 06/05/2024 15:27 Co-signature as Attending Physician, Bon Massey MD I agree with the assessment and c garza plan of care. Signatures: Dispatcher [employer] EDMS Bon Massey MD MD cha Able, Lacie, RN RN lg3 Myriam Zarate, PA-C PA-C sb4 Kari Aguilera cp4 Bessy Hernandez RN vc1 Corrections: (The following items were deleted from the chart) 05/31 19:36 19:36 CBC+H.LAB.BRZ ordered. EDMS EDMS 19:36 19:36 COMPREHENSIVE METABOLIC PANEL+C.LAB.BRZ ordered. EDMS EDMS 19:36 19:36 LIPASE+C.LAB.BRZ ordered. EDMS EDMS 19:36 19:36 Urinalysis+U.LAB.BRZ ordered. EDMS EDMS 22:14 22:13 Home sb4 sb4 22:14 22:13 new sb4 sb4 22:14 22:13 have improved sb4 sb4 22:14 22:13 Stable sb4 sb4 22:14 22:13 Infectious gastroenteritis and colitis, unspecified sb4 sb4
[2024-05-31] MEDS ORDERED: FENTANYL CITR 100 MCG/2 ML ONE (22:34)
[2024-05-31] MEDS ORDERED: CIPROFLOXACIN 400mg IV 400 MG/200 ML BAG IV ONE (22:35)
[2024-05-31] MEDS ORDERED: METRONIDAZOLE 500mg IVPB 500 MG/100 ML BAG IV ONE (22:35)
[2024-05-31] MEDS ORDERED: METOPROLOL XL 50 MG TAB PO ONE (22:46)
[2024-05-31] MEDS ORDERED: METOPROLOL TAR 25 MG TAB ONE (22:48)
[2024-06-01 08:39] VITALS: TEMP 97.4
[2024-06-01 08:41] VITALS: BP 144/109; O2SAT 98
== END 2024-06-01 01:11 | disposition home or self-care (01) ==
LOC: ER 18:32
DX: A09 Infectious gastroenteritis and colitis, unspecified (principal)
CPT/HCPCS: 36415; 74177; 80053; 81001; 83690; 85025; 96361; 96365; 96367; 96375; 99284; J0744; J2405; J3010; J7030; Q9967

== ENCOUNTER 2024-06-01 10:51 | Inpatient (IN) | payer SELFPAY ==
[2024-06-01 11:10] LABS: Absolute Eosinophils 0.1 K/uL (0-0.5); Absolute Lymphocytes (CBC) 1.1 K/uL (0.7-4.9); Absolute Monocytes 1.2 K/uL (0.1-1.3); Basophils % 0.5 % (0-1.3); Eosinophils % 1.6 % (0-4.4); Hematocrit 45.3 % (39.6-49.0); Hemoglobin 15.8 g/dL (13.6-17.9); Lymphocytes % 13.1 % (15.3-44.8); MCH 32.9 pg (27.0-35.0); MCHC 34.9 g/dL (32.0-36.0); MCV 94.4 fL (80-100); MPV 8.6 fL (7.6-11.3); Monocytes % 14.4 % (3.3-12.3); Neutrophils % 70.4 % (41.7-73.7); Nucleated Red Blood Cells % 0.1 % (0-0); Platelets 197 thou/uL (152-406); Red Cell Distribution Width 13.1 % (12.1-15.2)
[2024-06-01] MEDS ORDERED: FAMOTIDINE 20 MG/2 ML VIAL IV ONE (11:17)
[2024-06-01] MEDS ORDERED: MORPHINE 4 MG/ML SYR ONE ×2 (11:17→17:35)
[2024-06-01] MEDS ORDERED: NA CHLORIDE 0.9% 1,000 ML ONE (11:17)
[2024-06-01] MEDS ORDERED: ONDANSETRON 4 MG/2 ML VIAL ONE ×2 (11:17→17:34)
[2024-06-01] MEDS ORDERED: FENTANYL CITR 100 MCG/2 ML ONE ×2 (11:19→13:12)
--- NOTE | 2024-06-01 11:26 | RAD REPORT ---
EXAM: XR Abdomen W Erect HISTORY: [facility] MAIN ABD PAIN Bed Name: [id number] COMPARISON: 05/31/2023 CT abdomen and pelvis FINDINGS: Single view of the abdomen shows a nonspecific, nonobstructive bowel gas pattern. No suspi cious calcifications are seen. The bones are unremarkable. IMPRESSION: Unremarkable abdomen radiograph
[2024-06-01 11:27] LABS: Albumin 3.1 g/dL (3.4-5.0); Albumin/Globulin Ratio 0.8 (1.1-1.8); Anion Gap 10.8 mEq/L (5.0-15.0); Bilirubin Total 0.6 mg/dL (0.2-1.0); Globulin 3.7 g/dL (2.3-3.5); Potassium 3.8 mEq/L (3.5-5.1); Protein, Total 6.8 g/dL (6.4-8.2)
--- NOTE | 2024-06-01 14:29 | EDPHYS ---
Physician Documentation [facility] Name: Kurt Christianson Age: 24 yrs Sex: Male : 2000 Arrival Date: 06/01/2024 Time: 10:51 Bed 8 Private MD: SUELLEN Physician Bon Massey HPI: 06/01 14:24 This 24 yrs old Male presents to ER via EMS with complaints of Abdominal Pain.emy 14:24 The patient presents with abdominal pain in the lower abdomen, right lower quadrant, in emy the left lower quadrant. Onset: The symptoms/episode began/occurred 2 day(s) ago. The patient presents to the emergency department with nausea, vomiting, abdominal pain. Onset: The symptoms/episode began/occurred 2 day(s) ago. Possible causes: unknown, flare up of bowel problem. The symptoms are aggravated by movement, pressure, The symptoms are alleviated by nothing. remaining still. Associated signs and symptoms: Pertinent positives: abdominal pain, diarrhea, nausea, vomiting. Historical: - Allergies: 10:55 NKDA; ph - Home Meds: 10:55 Albuterol Inhl [Active]; Depakote Oral [Active]; ph - PMHx: 10:55 Asthma; HTN (Irregular heart rat); Irregular heart rate; Seizure; TBI; ph - PSHx: 10:55 Appendectomy; brain surgery; ph - Immunization history:: Adult Immunizations unknown. - Infectious Disease History:: Denies. - Social history:: Smoking status: Patient reports the use of cigarette tobacco products, smokes one pack cigarettes per day. Patient uses alcohol, occasionally. only on a social basis. - Family history:: not pertinent. ROS: 14:24 Constitutional: Negative for fever, chills, and weight loss, Eyes: Negative for injury, emy pain, redness, and discharge, ENT: Negative for injury, pain, and discharge, Neck: Negative for injury, pain, and swelling, Cardiovascular: Negative for chest pain, palpitations, and edema, Respiratory: Negative for shortness of breath, cough, wheezing, and pleuritic chest pain, Back: Negative for injury and pain, : Negative for injury, bleeding, discharge, and swelling, MS/Extremity: Negative for injury and deformity, Skin: Negative for injury, rash, and discoloration, Neuro: Negative for headache, weakness, numbness, tingling, and seizure, Psych: Negative for depression, anxiety, suicide ideation, homicidal ideation, and hallucinations, Allergy/Immunology: Negative for hives, rash, and allergies, Endocrine: Negative for neck swelling, polydipsia, polyuria, polyphagia, and marked weight changes, Hematologic/Lymphatic: Negative for swollen nodes, abnormal bleeding, and unusual bruising, 14:24 Abdomen/GI: Positive for abdominal pain, nausea and vomiting, diarrhea, abdominal cramps, abdominal distension, of the right lower quadrant and left lower quadrant, Exam: 14:25 Constitutional: This is a well developed, well nourished patient who is awake, alert, emy and in no acute distress. Head/Face: Normocephalic, atraumatic. Eyes: Pupils equal round and reactive to light, extra-ocular motions intact. Lids and lashes normal. Conjunctiva and sclera are non-icteric and not injected. Cornea within normal limits. Periorbital areas with no swelling, redness, or edema. ENT: Nares patent. No nasal discharge, no septal abnormalities noted. Tympanic membranes are normal and external auditory canals are clear. Oropharynx with no redness, swelling, or masses, exudates, or evidence of obstruction, uvula midline. Mucous membranes moist. Neck: Trachea midline, no thyromegaly or masses palpated, and no cervical lymphadenopathy. Supple, full range of motion without nuchal rigidity, or vertebral point tenderness. No Meningismus. Chest/axilla: Normal chest wall appearance and motion. Nontender with no deformity. No lesions are appreciated. Cardiovascular: Regular rate and rhythm with a normal S1 and S2. No gallops, murmurs, or rubs. Normal PMI, no JVD. No pulse deficits. Respiratory: Lungs have equal breath sounds bilaterally, clear to auscultation and percussion. No rales, rhonchi or wheezes noted. No increased work of breathing, no retractions or nasal flaring. Back: No spinal tenderness. No costovertebral tenderness. Full range of motion. Male : Normal genitalia with no discharge or lesions. Skin: Warm, dry with normal turgor. Normal color with no rashes, no lesions, and no evidence of cellulitis. MS/ Extremity: Pulses equal, no cyanosis. Neurovascular intact. Full, normal range of motion., bilateral aka Neuro: Awake and alert, GCS 15, oriented to person, place, time, and situation. Cranial nerves II-XII grossly intact. Motor strength 5/5 in all extremities. Sensory grossly intact. Cerebellar exam normal. Normal gait. Psych: Awake, alert, with orientation to person, place and time. Behavior, mood, and affect are within normal limits. 14:25 Abdomen/GI: Inspection: abdomen appears normal, Bowel sounds: active, all quadrants, Palpation: moderate abdominal tenderness, in the right lower quadrant and left lower quadrant, Liver: no appreciated palpable abnormalities, Hernia: not appreciated, Vital Signs: 10:53 BP 149 / 110; Pulse 75; Resp 18; Temp 98; Pulse Ox 96% on R/A; Weight 104.33 kg; Height ph 5 ft. 9 in. ; Pain 4/10; 12:42 BP 136 / 101; Pulse 52; Resp 18; Pulse Ox 99% on R/A; ph 14:30 BP 142 / 101; Pulse 78; Resp 18; Pulse Ox 99% on R/A; ph 16:00 BP 132 / 99; Pulse 81; Resp 18; Pulse Ox 98% on R/A; ph 17:00 BP 169 / 103; Pulse 86; Resp 18; Pulse Ox 99% on R/A; ph 18:00 BP 178 / 101; Pulse 85; Resp 18; Temp 97.9; Pulse Ox 98% on R/A; ph 10:53 Body Mass Index 33.96 (104.33 kg, 175.26 cm) ph 10:53 Pain Scale: Adult ph MDM: 10:53 Medical Screening Exam initiated emy 14:26 Differential diagnosis: Nonspecific abd pain, gastritis, cholecystitis, diverticulitis, emy viral gastroenteritis, gastroenteritis, Cholelithiasis, diverticulitis, gastritis, non-specific abd pain, pancreatitis, Peptic Ulcer Disease, Pyelonephritis, Ureterolithiasis, urinary tract infection. Data reviewed: vital signs, nurses notes, lab test result(s), EKG, radiologic studies, CT scan, plain films. Consideration of Admission/Observation Patient was admitted/placed on observation. Escalation of care including admission/observation considered. I considered the following discharge prescriptions or medication management in the emergency department Medications were administered in the Emergency Department. See MAR. Independent interpretation of the following test(s) in the Emergency Department CT Scan: My interpretation is CT SEE REPORT. Test considered but Not performed: MRI: NO MRI ABD, NO REPEAT CT AB/PEL. Historians other than the Patient: EMS: EMS WELL INFORMED. Care significantly affected by the following chronic conditions: Hypertension, Obesity, TBI, IRR HR, ASTHMA. 06/01 10:53 Order name: CBC with Diff; Complete Time: 11:51 [facility] 06/01 10:53 Order name: CMP; Complete Time: 11:51 [facility] 06/01 10:53 Order name: Lipase; Complete Time: 11:51 [facility] 06/01 10:53 Order name: Urinalysis w/ reflexes [facility] 06/01 14:26 Order name: Depakote [facility] 06/01 16:08 Order name: Urine Drug Screen EDAK 06/01 16:23 Order name: Basic Metabolic Panel EDAK 06/01 16:23 Order name: Basic Metabolic Panel EDMS 06/01 16:23 Order name: CBC with Automated Diff EDMS 06/01 16:23 Order name: CBC with Automated Diff EDMS 06/01 10:59 Order name: Abdomen with Erect XRAY; Complete Time: 11:51 [facility] 06/01 10:53 Order name: IV Saline Lock; Complete Time: 11:02 [facility] 06/01 10:53 Order name: Labs collected and sent; Complete Time: 11:02 [facility] Administered Medications: 11:31 Drug: Famotidine IVP 20 mg IVP once; dilute with 10 mL 0.9% NaCl; give over 2 minutes ph Route: IVP; Site: right antecubital; 14:59 Follow up: Response: No adverse reaction ph 11:32 Not Given (Other Intervention Used): morphineor iv 4 mg IVP once over 4 mins ph 11:32 Drug: NS 0.9% IV 1000 ml IV at 1 bolus Per protocol; to be given as a bolus over 60 ph minutes Route: IV; Rate: 1 bolus; Site: right antecubital; 12:35 Follow up: Response: No adverse reaction; IV Status: Completed infusion; IV Intake: ph 1000ml 11:32 Drug: fentaNYL (PF) IVP 50 mcg IVP once Route: IVP; Site: right antecubital; ph 12:00 Follow up: Response: No adverse reaction; Pain is decreased ph 13:16 Drug: fentaNYL (PF) IVP 50 mcg IVP once Route: IVP; Site: right antecubital; ph 13:45 Follow up: Response: No adverse reaction ph 14:20 Not Given (Patient Refused; no nauseaa): ondansetron 4 mg IVP once; over 2 minutes ph 14:57 Drug: Ciprofloxacin IVPB 400 mg 200 ml IVPB once over 60 mins Volume: 200 ml; Route: ph IVPB; Infused Over: 60 mins; Site: right antecubital; 16:00 Follow up: Response: No adverse reaction; IV Status: Completed infusion ph 15:30 Drug: metroNIDAZOLE IVPB 500 mg 100 ml IVPB at 200 ml/hr once over 30 mins Volume: 100 ph ml; Route: IVPB; Rate: 200 ml/hr; Infused Over: 30 mins; Site: right antecubital; 16:00 Follow up: Response: No adverse reaction; IV Status: Completed infusion ph 18:04 Drug: Ondansetron IVP 4 mg IVP once; over 2 minutes Route: IVP; Site: right antecubital;ph 18:30 Follow up: Response: No adverse reaction ph Disposition Summary: 06/01/24 14:29 Hospitalization Ordered Notes: Hospitalization Status: Inpatient Admission emy Provider: Maryellen Grullon cha Location: Telemetry/MedSurg (Inpatient) emy Condition: Stable emy Problem: new emy Symptoms: have improved emy Bed/Room Type: Standard [facility] Room Assignment: 401(06/01/24 17:26) eb Diagnosis - Abdominal pain, Generalized emy - Vomiting emy - Other specified noninfective gastroenteritis and colitis emy - Diarrhea, unspecified emy Forms: - Medication Reconciliation Form emy - SBAR form emy - Leadership Thank You Letter emy Signatures: Dispatcher [employer] EDBon Willett MD MD cha Hall, Patricia RN RN Maricruz Brady Corrections: (The following items were deleted from the chart) 14: 14:26 VALPROIC ACID (DEPAKOTE)+C.LAB.BRZ ordered. EDAK EDAK 17: 14:29 emy renteria
--- NOTE | 2024-06-01 14:29 | ER ---
Nurse's Notes [facility] Name: Kurt Christianson Age: 24 yrs Sex: Male : 2000 Arrival Date: 06/01/2024 Time: 10:51 Bed 8 Private MD: Diagnosis: Abdominal pain, Generalized;Vomiting;Other specified noninfective gastroenteritis and colitis;Diarrhea, unspecified Presentation: 06/01 10:53 Chief complaint: EMS states: Was seen in ED yesterday and dx w/ colitis, was d/c home ph w/ medications, today the pain became worse, now radiating from L side of abdomen to R and to back, denies N/V, 50 mcg Fentanyl given by EMS,pain now 09/06, down from 1010. Coronavirus screen: Vaccine status: Patient reports being unvaccinated. Ebola Screen: No symptoms or risks identified at this time. Initial Sepsis Screen: Does the patient meet any 2 criteria? No. Patient's initial sepsis screen is negative. Does the patient have a suspected source of infection? No. Patient's initial sepsis screen is negative. Risk Assessment: Do you want to hurt yourself or someone else? Patient reports no desire to harm self or others. Onset of symptoms was June 01, 2024. 10:53 Method Of Arrival: EMS: [facility] 10:53 Acuity: ANABEL 3 ph Triage Assessment: 10:57 General: Appears in no apparent distress. comfortable, well groomed, Behavior is calm, ph cooperative, appropriate for age. Pain: Complains of pain in left upper quadrant and left lower quadrant Pain radiates to right upper quadrant and right lower quadrant. Pain: Pain radiates to back. Neuro: Level of Consciousness is awake, alert, obeys commands, Oriented to person, place, time, situation. Neuro: Brown Agitation-Sedation Scale (RASS): 0 - Alert and Calm. Cardiovascular: Capillary refill < 3 seconds in bilateral fingers Patient's skin is warm and dry. Respiratory: Airway is patent Respiratory effort is even, unlabored. GI: Abdomen is non-distended. GI: Reports lower abdominal pain, upper abdominal pain, Patient currently denies nausea, vomiting. Derm: Skin is pink, warm \T\ dry. Musculoskeletal: Circulation, motion, and sensation intact. Range of motion: intact in all extremities. Historical: - Allergies: 10:55 NKDA; ph - Home Meds: 10:55 Albuterol Inhl [Active]; Depakote Oral [Active]; ph - PMHx: 10:55 Asthma; HTN (Irregular heart rat); Irregular heart rate; Seizure; TBI; ph - PSHx: 10:55 Appendectomy; brain surgery; ph - Immunization history:: Adult Immunizations unknown. - Infectious Disease History:: Denies. - Social history:: Smoking status: Patient reports the use of cigarette tobacco products, smokes one pack cigarettes per day. Patient uses alcohol, occasionally. only on a social basis. - Family history:: not pertinent. Screenin:59 [facility] ED Fall Risk Assessment (Adult) History of falling in the last 3 months, ph including since admission No falls in past 3 months (0 pts) Confusion or Disorientation No (0 pts) Intoxicated or Sedated No (0 pts) Impaired Gait No (0 pts) Mobility Assist Device Used No (0 pt) Altered Elimination No (0 pt) Score/Fall Risk Level 0 - 2 = Low Risk Oriented to surroundings, Maintained a safe environment, Hourly rounding (assess needs \T\ fall precautionary measures) done. Abuse screen: Denies threats or abuse. Denies injuries from another. Nutritional screening: No deficits noted. Tuberculosis screening: No symptoms or risk factors identified. Assessment: 12:41 Reassessment: Patient appears in no apparent distress at this time. Patient and/or ph family updated on plan of care and expected duration. Pain level reassessed. Patient is alert, oriented x 3, equal unlabored respirations, skin warm/dry/pink. Pt c/o abdominal pain returning, ERP notified. 14:30 Reassessment: Patient appears in no apparent distress at this time. Patient and/or ph family updated on plan of care and expected duration. Pain level reassessed. Patient is alert, oriented x 3, equal unlabored respirations, skin warm/dry/pink. 15:30 Reassessment: Patient appears in no apparent distress at this time. Patient and/or ph family updated on plan of care and expected duration. Pain level reassessed. Patient is alert, oriented x 3, equal unlabored respirations, skin warm/dry/pink. Vital Signs: 10:53 BP 149 / 110; Pulse 75; Resp 18; Temp 98; Pulse Ox 96% on R/A; Weight 104.33 kg; Height ph 5 ft. 9 in. ; Pain 4/10; 12:42 BP 136 / 101; Pulse 52; Resp 18; Pulse Ox 99% on R/A; ph 14:30 BP 142 / 101; Pulse 78; Resp 18; Pulse Ox 99% on R/A; ph 16:00 BP 132 / 99; Pulse 81; Resp 18; Pulse Ox 98% on R/A; ph 17:00 BP 169 / 103; Pulse 86; Resp 18; Pulse Ox 99% on R/A; ph 18:00 BP 178 / 101; Pulse 85; Resp 18; Temp 97.9; Pulse Ox 98% on R/A; ph 10:53 Body Mass Index 33.96 (104.33 kg, 175.26 cm) ph 10:53 Pain Scale: Adult ph ED Course: 10:52 Patient arrived in ED. ph 10:53 Bon Massey MD is Attending Physician. emy 10:53 Aliza Truong, RN is Primary Nurse. ph 10:55 Triage completed. ph 10:59 Arm band placed on Patient placed in an exam room, on a stretcher, on pulse oximetry. ph 11:02 CBC with Diff Sent. ph 11:02 CMP Sent. ph 11:02 Lipase Sent. ph 11:03 Patient has correct armband on for positive identification. Bed in low position. Call ph light in reach. Side rails up X 1. Pulse ox on. NIBP on. Door closed. Noise minimized. Warm blanket given. 11:05 Initial lab(s) drawn, by me, sent to lab. kb4 11:13 Abdomen with Erect XRAY In Process Unspecified. EDMS 14:28 Maryellen Grullon is Hospitalizing Provider. emy 14:57 Depakote Sent. ph 18:07 No provider procedures requiring assistance completed. ph 18:07 Patient admitted, IV remains in place. ph Administered Medications: 11:31 Drug: Famotidine IVP 20 mg IVP once; dilute with 10 mL 0.9% NaCl; give over 2 minutes ph Route: IVP; Site: right antecubital; 14:59 Follow up: Response: No adverse reaction ph 11:32 Not Given (Other Intervention Used): morphineor iv 4 mg IVP once over 4 mins ph 11:32 Drug: NS 0.9% IV 1000 ml IV at 1 bolus Per protocol; to be given as a bolus over 60 ph minutes Route: IV; Rate: 1 bolus; Site: right antecubital; 12:35 Follow up: Response: No adverse reaction; IV Status: Completed infusion; IV Intake: ph 1000ml 11:32 Drug: fentaNYL (PF) IVP 50 mcg IVP once Route: IVP; Site: right antecubital; ph 12:00 Follow up: Response: No adverse reaction; Pain is decreased ph 13:16 Drug: fentaNYL (PF) IVP 50 mcg IVP once Route: IVP; Site: right antecubital; ph 13:45 Follow up: Response: No adverse reaction ph 14:20 Not Given (Patient Refused; no nauseaa): ondansetron 4 mg IVP once; over 2 minutes ph 14:57 Drug: Ciprofloxacin IVPB 400 mg 200 ml IVPB once over 60 mins Volume: 200 ml; Route: ph IVPB; Infused Over: 60 mins; Site: right antecubital; 16:00 Follow up: Response: No adverse reaction; IV Status: Completed infusion ph 15:30 Drug: metroNIDAZOLE IVPB 500 mg 100 ml IVPB at 200 ml/hr once over 30 mins Volume: 100 ph ml; Route: IVPB; Rate: 200 ml/hr; Infused Over: 30 mins; Site: right antecubital; 16:00 Follow up: Response: No adverse reaction; IV Status: Completed infusion ph 18:04 Drug: Ondansetron IVP 4 mg IVP once; over 2 minutes Route: IVP; Site: right antecubital;ph 18:30 Follow up: Response: No adverse reaction ph Medication: 10:59 VIS not applicable for this client. ph Intake: 12:35 IV: 1000ml; Total: 1000ml. ph Outcome: 14:29 Decision to Hospitalize by Provider. emy 18:33 Patient left the ED. iw 18:33 Admitted to Med/surg accompanied by tech, family with patient, via wheelchair, with ph chart, 18:33 Condition: stable 18:33 Instructed on the need for admit, Signatures: Dispatcher [employer] EDBon Willett MD MD cha Williams, Irene, RN RN Aliza Truong RN RN Clarice Muro [id number] Corrections: (The following items were deleted from the chart) 18:07 18: metroNIDAZOLE IVPB 500 mg 100 ml IVPB at 200 ml/hr in right antecubital over 30 ph mins ph : 18: IV discontinued, intact, bleeding controlled, No redness/swelling at site. ph Pressure dressing applied, ph
[2024-06-01] MEDS ORDERED: CIPROFLOXACIN 400mg IV 400 MG/200 ML BAG IV ONE (14:38)
[2024-06-01] MEDS ORDERED: METRONIDAZOLE 500mg IVPB 500 MG/100 ML BAG IV ONE (14:38)
[2024-06-01] MEDS ORDERED: PROMETHAZINE 25 MG/SUPP PR PRN (16:13)
[2024-06-01] MEDS ORDERED: ACETAMINOPHEN 325 MG TABLET PO PRN (16:13)
[2024-06-01] MEDS ORDERED: ALBUTEROL 2.5 MG/3 ML NEB SOL NEB PRN (16:13)
[2024-06-01] MEDS ORDERED: ZOLPIDEM TARTRATE 5 MG TABLET PO PRN (16:13)
[2024-06-01] MEDS ORDERED: HYOSCYAMINE SULF PO PRN (16:19)
--- NOTE | 2024-06-01 16:59 | P.HP ---
Certification for Inpatient Patient admitted to: Inpatient With expected LOS: >2 Midnights Patient will require the following post-hospital care: None Practitioner: I am a practitioner with admitting privileges, knowledge of patient current condition, hospital course, and medical plan of care. Services: Services provided to patient in accordance with Admission requirements found in Title 42 Section 412.3 of the Code of Federal Regulations Patient History Date of Service: 06/01/24 Reason for admission: Intractable nausea and vomiting, abdominal pain, ALEKSANDER History of Present Illness: Mr. Christianson is a 24-year-old with a past medical history of a TBI with resultant seizure disorder who presented to the emergency department yesterday on 05/31/2024 with abdominal pain, nausea, and vomiting status post eating oysters. He was evaluated in the emergency room treated and released in good condition with symptom treating medications. He returned to the emergency department today with worsening of his symptoms. On reevaluation his CBC is normal, he does have a mild ALEKSANDER from yesterday's creatinine of 1.21-1.53 with a GFR of 85- 64. No significant imaging changes. We will admit him for hydration and symptom treatment. Allergies No Known Drug Allergies Allergy (Unverified 08/11/15 14:26) Unknown Home medications list reviewed: Yes Home Medications: Albuterol Neb [Proventil 0.083% Neb Soln] 2.5 mg IH Q4HP PRN #30 amp 09/17/11 Azithromycin 250 mg PO DAILY #3 tablet 09/17/11 Prednisone 40 mg PO BID #12 tablet 09/17/11 - Past Medical/Surgical History Has patient received pneumonia vaccine in the past: No Diabetic: No -: TBI with resultant seizure disorder -: asthma -: Hypertension -: Neurosurgery -: Happened to me Psychosocial/ Personal History: Lives at home, smokes 1 pack/day, last seizure 3 months ago, - Social History Smoking Status: Current every day smoker Smoking therapy provided: No Patient receptive to therapy: No Alcohol use: No CD- Drugs: No Caffeine use: Yes Place of Residence: Home Review of Systems 10-point ROS is otherwise unremarkable General: As per HPI Eyes: Unremarkable ENT: Unremarkable Respiratory: Unremarkable Cardiovascular: Unremarkable Gastrointestinal: Nausea, Vomiting, Abdominal Pain, Diarrhea (Resolved yesterday) Musculoskeletal: Back Pain Integumentary: Unremarkable Neurological: As per HPI Lymphatics: Unremarkable Physical Examination - Physical Exam General: Alert, In no apparent distress, Oriented x3 HEENT: Atraumatic, Normocephalic Neck: Supple, 2+ carotid pulse no bruit Respiratory: Normal air movement Cardiovascular: Normal pulses, Regular rate/rhythm Capillary refill: <2 Seconds Gastrointestinal: Tenderness (Left lower quadrant radiating around towards back) Musculoskeletal: No clubbing, No swelling Integumentary: No rashes Neurological: Normal speech, Normal tone, Normal affect Lymphatics: No axilla or inguinal lymphadenopathy External genitalia: Deferred Rectal: Deferred - Studies Laboratory Data (last 24 hrs) 06/01/24 06/01/24 11:02 11:02 WBC 8.50 Hgb 15.8 Hct 45.3 Plt Count 197 Sodium 137 Potassium 3.8 BUN 11 Creatinine 1.53 H Glucose 95 Total Bilirubin 0.6 AST 42 H ALT 76 H Alkaline Phosphatase 87 Lipase 17 Assessment and Plan - Plan Enteritis IVF Antiemetic Antispasm Pain control ALEKSANDER Avoid nephrotoxins Monitor and trend History of seizure disorder Patient's anticonvulsant -valproic acid Subtherapeutic level noted in ED - replete Seizure precautions Discharge Plan: Home Plan to discharge in: 48 Hours - Advance Directives Does patient have a Living Will: No Does patient have a Durable POA for Healthcare: No - Code Status/Comfort Care Code Status Assessed: Yes (Full) Critical Care: No
[2024-06-01] MEDS: MORPHINE 4 MG/ML SYR IV PRN (17:50)
[2024-06-01] MEDS: D5NS KCL 20MEQ 20 MEQ/1,000 ML BAG IV SCH (19:27)
[2024-06-01] MEDS: DIVALPROEX DR 500MG TAB PO SCH (19:30)
[2024-06-01 19:39] VITALS: BMI 31.7
[2024-06-01] MEDS ORDERED: HYDROMORPHONE HCL 1 MG/ML INJ IV PRN (19:46)
[2024-06-01] MEDS: HYDROMORPHONE HCL 1 MG/ML INJ IV PRN (20:06)
[2024-06-01] MEDS: HYDRALAZINE HCL 20 MG/ML VIAL IV PRN (21:36)
[2024-06-02] MEDS: ONDANSETRON 4 MG/2 ML VIAL IV PRN (00:21)
[2024-06-02] MEDS: ACETAMINOPHEN 500 MG TAB PO PRN (00:36)
[2024-06-02] MEDS: HYOSCYAMINE SULF 0.125 MG TAB PO PRN (00:36)
[2024-06-02] MEDS: HYDROMORPHONE HCL 1 MG/ML INJ IV ONE ×2 (01:25→05:58)
[2024-06-02 02:00] LABS: Absolute Basophils 0.1 K/uL (0-0.5); Absolute Eosinophils 0.1 K/uL (0-0.5); Absolute Lymphocytes (CBC) 1.2 K/uL (0.7-4.9); Absolute Monocytes 0.7 K/uL (0.1-1.3); Absolute Neutrophil 5.6 K/uL (1.8-8.0); Basophils % 1.6 % (0-1.3); Eosinophils % 1.4 % (0-4.4); Hematocrit 46.2 % (39.6-49.0); Hemoglobin 15.9 g/dL (13.6-17.9); Lymphocytes % 15.7 % (15.3-44.8); MCH 32.6 pg (27.0-35.0); MCHC 34.3 g/dL (32.0-36.0); MCV 94.8 fL (80-100); MPV 8.9 fL (7.6-11.3); Monocytes % 9.4 % (3.3-12.3); Neutrophils % 71.9 % (41.7-73.7); Nucleated RBC Absolute Count 0.1 (0-0); Nucleated Red Blood Cells % 0.6 % (0-0); Platelets 213 thou/uL (152-406); RBC Red Blood Cell Count 4.88 M/uL (4.33-5.43); Red Cell Distribution Width 13.1 % (12.1-15.2)
[2024-06-02 02:15] LABS: Anion Gap 11.6 mEq/L (5.0-15.0); Potassium 3.6 mEq/L (3.5-5.1)
[2024-06-02 04:57] LABS: Specific Gravity < 1.005 (1.005-1.030); Sqamous Epithelial <5 /HPF (None Seen); Urine Bacteria None Seen /HPF (<20); Urine Bilirubin NEGATIVE (Negative); Urine Blood 1+ (Negative); Urine Clarity Turbid (Clear); Urine Color Colorless (Yellow); Urine Crystals Unidentified Few /HPF (None Seen); Urine Culture Reflex Order NOT NEEDED; Urine Glucose NEGATIVE (Negative); Urine Ketones TRACE (Negative); Urine Microscopic Reflex YN ORDER UMIC; Urine Nitrite NEGATIVE (Negative); Urine Protein NEGATIVE (Negative); Urine RBC <5 /HPF (None Seen); Urine Urobilinogen Normal (Normal); Urine WBC <5 /HPF (<5); Urine pH 5.5 (5.0-7.0)
[2024-06-02 05:02] LABS: Barbiturates NEGATIVE (NEGATIVE); Benzodiazepines NEGATIVE (NEGATIVE); Cocaine NEGATIVE (NEGATIVE); METHAMPHETAM NEGATIVE (NEGATIVE); Methadone NEGATIVE (NEGATIVE); Opiates POSITIVE (NEGATIVE); Phencyclidine NEGATIVE (NEGATIVE); THC Cannibis POSITIVE (NEGATIVE)
[2024-06-02 06:36] LABS: Absolute Eosinophils 0.1 K/uL (0-0.5); Absolute Lymphocytes (CBC) 1.4 K/uL (0.7-4.9); Absolute Monocytes 0.9 K/uL (0.1-1.3); Absolute Neutrophil 4.7 K/uL (1.8-8.0); Basophils % 0.2 % (0-1.3); Eosinophils % 1.1 % (0-4.4); Hematocrit 47.4 % (39.6-49.0); Hemoglobin 16.3 g/dL (13.6-17.9); Lymphocytes % 19.3 % (15.3-44.8); MCH 32.9 pg (27.0-35.0); MCHC 34.3 g/dL (32.0-36.0); MCV 95.9 fL (80-100); Monocytes % 13.1 % (3.3-12.3); Neutrophils % 66.3 % (41.7-73.7); Nucleated Red Blood Cells % 0.1 % (0-0); Platelets 205 thou/uL (152-406); RBC Red Blood Cell Count 4.94 M/uL (4.33-5.43); Red Cell Distribution Width 13.3 % (12.1-15.2)
[2024-06-02 06:50] LABS: Anion Gap 7.8 mEq/L (5.0-15.0); Potassium 3.8 mEq/L (3.5-5.1)
[2024-06-02] MEDS: DIAZEPAM 10 MG/2 ML INJ SYRINGE IV ONE (07:47)
[2024-06-02] MEDS ORDERED: droPERidol 5 MG/2 ML VIAL IV SCH (08:00)
[2024-06-02] MEDS: POTASSIUM CL SA 10 MEQ TAB PO ONE (08:31)
[2024-06-02] MEDS: droPERidol 5 MG/2 ML VIAL IV PRN (09:05)
--- NOTE | 2024-06-02 09:48 | P.PN ---
Date of Service: 06/02/24 Will attempt to discharge later in the afternoon. Mr. Christianson was quite agitated and had vomited this am prior to my arrival to his room. I discussed the THC in his urine drug screen and cyclical vomiting with him. He denies history. I will try to decrease his symptoms with some alternate medications and see if he is safe for discharge today or if he might need another day for symptom management.
[2024-06-02 09:54] VITALS: O2SAT 93
[2024-06-02] MEDS: KETOROLAC 30 MG/ML INJ IV ONE (16:39)
[2024-06-02] MEDS: METOPROLOL XL 25 MG TAB PO SCH (16:53)
[2024-06-02 17:04] VITALS: TEMP 98.2
--- NOTE | 2024-06-02 17:23 | P.DS ---
Admission Date: 06/01/24 Discharge Date: 06/02/24 Disposition: ROUTINE DISCHARGE Discharge Condition: GOOD Reason for Admission: Intractable nausea and vomiting, abdominal pain, ALEKSANDER Brief History of Present Illness: Mr. Christianson is a 24-year-old with a past medical history of a TBI with resultant seizure disorder who presented to the emergency department yesterday on 05/31/2024 with abdominal pain, nausea, and vomiting status post eating oysters. He was evaluated in the emergency room treated and released in good condition with symptom treating medications. He returned to the emergency department today with worsening of his symptoms. On reevaluation his CBC is normal, he does have a mild ALEKSANDER from yesterday's creatinine of 1.21-1.53 with a GFR of 85- 64. No significant imaging changes. We will admit him for hydration and s ymptom treatment. Hospital Course: Mr. Christianson has not had any diarrhea. He vomited just prior to my arrival this morning but was given some Inapsine and nausea has ceased. His kidney function has returned to normal. He has been up to void multiple times with no dizziness. He does still complain of lower back pain for which he was receiving Dilaudid. He was given Valium IV this morning and slept for several hours. He is hemodynamically stable. He does have a chronic history of hypertension and was taking nebivolol but it was too costly so he was changed over to metoprolol in the emergency department prior to admission. He is deemed safe for discharge and we will prescribe him metoprolol, Levsin, Phenergan, and a very few diclofenac. THC in any form should be avoided. Vital Signs/Physical Exam: Temp Pulse Resp BP Pulse Ox 98.2 F 72 16 157/119 H 99 06/02/24 16:00 06/02/24 16:53 06/02/24 16:00 06/02/24 16:53 06/02/24 16:00 General: Alert, In no apparent distress, Oriented x3 HEENT: Atraumatic, Normocephalic Neck: Supple, 2+ carotid pulse no bruit Respiratory: Clear to auscultation bilaterally, Normal air movement Cardiovascular: Regular rate/rhythm, Normal S1 S2 Capillary refill: <2 Seconds Gastrointestinal: Tenderness (improved but persists) Musculoskeletal: No clubbing, No swelling Integumentary: No rashes Neurological: Normal speech, Normal tone, Normal affect, Other (Anxious) External genitalia: Deferred Rectal: Deferred Laboratory Data at Discharge: WBC 7.00 thou/uL (4.3-10.9) 06/02/24 05:54 Hgb 16.3 g/dL (13.6-17.9) 06/02/24 05:54 Hct 47.4 % (39.6-49.0) 06/02/24 05:54 Plt Count 205 thou/uL (152-406) 06/02/24 05:54 Sodium 141 mEq/L (136-145) 06/02/24 05:54 Potassium 3.8 mEq/L (3.5-5.1) 06/02/24 05:54 BUN 8 mg/dL (7-18) 06/02/24 05:54 Creatinine 1.28 mg/dL (0.70-1.30) 06/02/24 05:54 Glucose 110 mg/dL (74-106) H 06/02/24 05:54 Total Bilirubin 0.6 mg/dL (0.2-1.0) 06/01/24 11:02 AST 42 U/L (15-37) H 06/01/24 11:02 ALT 76 U/L (16-61) H 06/01/24 11:02 Alkaline Phosphatase 87 U/L (45-117) 06/01/24 11:02 Lipase 17 U/L (13-75) 06/01/24 11:02 Home Medications: Buspirone HCl [Buspar] 10 mg PO BID 06/01/24 Divalproex ER [Depakote *ER] 500 mg PO BID 06/01/24 Gabapentin 300 mg PO TID 06/01/24 Diclofenac Sodium [Diclofenac Sodium ER] 100 mg PO BIDP PRN #10 tab 06/02/24 Hyoscyamine Sulfate [Levsin-Sl] 0.125 mg SL Q6HP PRN #20 tab 06/02/24 Metoprolol Succinate [Toprol Xl*] 25 mg PO BEDTIME #30 tab 06/02/24 Promethazine Tab [Phenergan] 25 mg PO Q6HP PRN #20 tab 06/02/24 New Medications: Diclofenac Sodium [Diclofenac Sodium ER] 100 mg PO BIDP PRN #10 tab PRN Reason: Pain Scale 8-10 (Severe) Hyoscyamine Sulfate [Levsin-Sl] 0.125 mg SL Q6HP PRN #20 tab PRN Reason: Abdominal Cramps Promethazine Tab [Phenergan] 25 mg PO Q6HP PRN #20 tab PRN Reason: Nausea / Vomiting Metoprolol Succinate [Toprol Xl*] 25 mg PO BEDTIME #30 tab Physician Discharge Instructions: Mr. Christianson has not had any diarrhea. He vomited just prior to my arrival this morning but was given some Inapsine and nausea has ceased. His kidney function has returned to normal. He has been up to void multiple times with no dizziness. He does still complain of lower back pain for which he was receiving Dilaudid. He was given Valium IV this morning and slept for several hours. He is hemodynamically stable. He does have a chronic history of hypertension and was taking nebivolol but it was too costly so he was changed over to metoprolol in the emergency department prior to admission. He is deemed safe for discharge and we will prescribe him metoprolol, Levsin, Phenergan, and a very few diclofenac. THC in any form should be avoided. Diet: [place] Activity: Ad rosio Followup: NONE,NONE [Primary Care Provider] -
[2024-06-02 18:01] VITALS: BP 151/109
== END 2024-06-02 19:00 | disposition home or self-care (01) | DRG 392 ==
LOC: ER 10:51 → ERHOLD 16:13 → 4TH 17:44
PROVIDERS: ADMIT Internal Medicine; ATTEND Internal Medicine
DX: K52.9 Noninfective gastroenteritis and colitis, unspecified (principal); N17.9 Acute kidney failure, unspecified; I10 Essential (primary) hypertension; E66.9 Obesity, unspecified; J45.909 Unspecified asthma, uncomplicated; F17.210 Nicotine dependence, cigarettes, uncomplicated; Z68.31 Body mass index [BMI] 31.0-31.9, adult; Z79.52 Long term (current) use of systemic steroids; Z90.49 Acquired absence of other specified parts of digestive tract; Z87.820 Personal history of traumatic brain injury; Z79.899 Other long term (current) drug therapy
CPT/HCPCS: 36415; 74019; 80048; 80053; 80164; 80307; 81001; 83605; 83690; 85025; 96361; 96365; 96375; 99285; J0360; J0744; J1171; J1790; J2405; J3010; J3360; J3480; J7030

== ENCOUNTER 2024-07-09 15:32 | Emergency (ER) | payer SELFPAY ==
[2024-07-09] MEDS ORDERED: ONDANSETRON 4 MG/2 ML VIAL ONE (16:00)
[2024-07-09] MEDS ORDERED: NA CHLORIDE 0.9% 1,000 ML ONE (16:00)
[2024-07-09] MEDS ORDERED: DIAZEPAM 2 MG TABLET ONE (16:00)
[2024-07-09 16:23] LABS: Absolute Eosinophils 0.1 K/uL (0-0.5); Absolute Lymphocytes (CBC) 1.8 K/uL (0.7-4.9); Absolute Monocytes 0.5 K/uL (0.1-1.3); Absolute Neutrophil 1.6 K/uL (1.8-8.0); Eosinophils % 1.5 % (0-4.4); Hematocrit 46.1 % (39.6-49.0); Hemoglobin 16.2 g/dL (13.6-17.9); Lymphocytes % 45.4 % (15.3-44.8); MCH 32.3 pg (27.0-35.0); MCHC 35.2 g/dL (32.0-36.0); MCV 91.7 fL (80-100); MPV 8.6 fL (7.6-11.3); Monocytes % 11.7 % (3.3-12.3); Neutrophils % 40.4 % (41.7-73.7); Nucleated Red Blood Cells % 0.2 % (0-0); Platelets 215 thou/uL (152-406); RBC Red Blood Cell Count 5.03 M/uL (4.33-5.43); Red Cell Distribution Width 12.8 % (12.1-15.2)
[2024-07-09 16:35] LABS: Anion Gap 9.1 mEq/L (5.0-15.0); Potassium 4.1 mEq/L (3.5-5.1)
--- NOTE | 2024-07-09 16:37 | RAD REPORT ---
EXAM: Chest Single View HISTORY: cough, chest pain COMPARISON: 11/13/2019 FINDINGS: LUNGS/PLEURA: The lungs are clear. No pleural effusions or pneumothorax. No pulmonary edema. MEDIASTINUM: The mediastinal silhouette is within normal limits. CARDIAC: The cardiac silhouette is within normal limits. UPPER ABDOMEN: No significant abnormality. BONES: No acute abnormality. LINES/TUBES/OTHER: N/A IMPRESSION: No evidence of acute cardiopulmonary disease.
[2024-07-09 16:51] LABS: SARS-CoV-2 Antigen CONTROL BLUE LINE VIS/BG OK; SARS-CoV-2 Antigen Rapid Res Negative (Negative)
--- NOTE | 2024-07-09 17:31 | RAD REPORT ---
EXAMINATION: CT HEAD WITHOUT CONTRAST CLINICAL INDICATION: Male, 24 years old.HEADACHE TECHNIQUE: Axial CT images from the skull base to the vertex without intravenous contrast. Coronal an d sagittal reformatted images were created from the data set. One or more of the following dose reduction techniques were used: Automated exposure control, adjustment of the mA and/or kV according to patient size, and/or iterative reconstruction. Unless otherwise specified, incidental findings do not require dedicated imaging follow-up. [id number]. COMPARISON: 10/06/2021 FINDINGS: INTRACRANIAL: No acute intracranial hemorrhage. No hydrocephalus. No mass effect or midline shift. No significant white matter disease.Similar right frontal lobe encephalomalacia. Streak artifact from embolization coils near the right aspect of the cavernous sinus. VASCULATURE: No visualized abnormalities in the arteries or dural venous sinuses. SCALP/SKULL: No significant soft tissue or osseous abnormalities. Right frontal craniotomy. SINUSES: The visualized paranasal sinuses and mastoid air cells are predominantly clear. IMPRESSION: No acute intracranial abnormality. No significant change from 10/06/2021.
--- NOTE | 2024-07-09 17:35 | RAD REPORT ---
EXAMINATION: CTA HEAD CLINICAL INDICATION: Male, 24 years old. Headache, vomiting, HTN TECHNIQUE: Axial CT images were obtained through the head after intravenous contrast utilizing angiog raphic protocol with 3D post-processing (maximum intensity projection images, volume rendered images and/or shaded surface rendered images). One or more of the following dose reduction technique s were used: Automated exposure control, adjustment of the mA and/or kV according to patient size, and/or iterative reconstruction. Unless otherwise specified, incidental findings do not require dedic ated imaging follow-up. COMPARISON: No prior exam. FINDINGS: ICA: The petrous, cavernous, and supraclinoid segments of the bilateral internal carotid arteries are normal. The ophthalmic artery origins are visualized and normal. The posterior communicating arteries are patent. Portions of the right ICA including at the petrous segment and right cavernous s egment are obscured by streak artifact. Portions of the left cavernous ICA are also partially obscured by streak artifact. NENA: Anterior cerebral arteries are normal bilaterally. The anterior communicating artery is patent. MCA: Middle cerebral arteries are normal bilaterally. CPC: Posterior cerebral arteries are normal bilaterally. Vertebrobasilar: The vertebral arteries are patent. The basilar artery is normal in appearance. Left dominant vertebral artery. Portions of the distal basilar artery are obscured by streak artifact. 3D images confirm these findings. IMPRESSION: No occlusion, aneurysm, or hemodynamically significant stenosis identified. Artifact from embolizatio n coils.
--- NOTE | 2024-07-09 17:51 | ER ---
Nurse's Notes [facility] Name: Kurt Christianson Age: 24 yrs Sex: Male : 2000 Arrival Date: 07/09/2024 Time: 15:32 Bed 18 Private MD: Diagnosis: Disease of upper respiratory tract, unspecified Presentation: 07/09 15:13 Chief complaint: Patient states: "I just feel weird like I am going to have a seizure". aa5 Pt c/o dizziness, chest pain, and "feeling shaky". 15:13 Coronavirus screen: congestion. Ebola Screen: Patient denies travel to an [facility] Ebola-affected area in the 21 days before illness onset. Initial Sepsis Screen: Does the patient meet any 2 criteria? HR > 90 bpm. Does the patient have a suspected source of infection? No. Patient's initial sepsis screen is negative. Risk Assessment: Do you want to hurt yourself or someone else? Patient reports no desire to harm self or others. Onset of symptoms was July 09, 2024. 15:13 Acuity: ANABEL 3 aa5 15:13 Method Of Arrival: Ambulatory aa5 Triage Assessment: 15:45 General: Appears in no apparent distress. comfortable, Behavior is cooperative, bp appropriate for age, anxious. Pain: Complains of pain in chest. EENT: No deficits noted. Neuro: No deficits noted. Cardiovascular: Rhythm is sinus rhythm. Respiratory: No deficits noted. GI: No signs and/or symptoms were reported involving the gastrointestinal system. : No signs and/or symptoms were reported regarding the genitourinary system. Derm: No deficits noted. Musculoskeletal: No deficits noted. Historical: - Allergies: 15:45 NKDA; aa5 - Home Meds: 15:45 Depakote Oral [Active]; aa5 - PMHx: 15:45 Asthma; HTN (Irregular heart rat); Irregular heart rate; Seizure; TBI; Dementia; aa5 - PSHx: 15:45 brain surgery; Appendectomy; aa5 - Immunization history:: Adult Immunizations unknown. - Infectious Disease History:: Denies. - Social history:: Smoking status: Patient reports the use of cigarette tobacco products. - Family history:: not pertinent. - Hospitalizations: : No recent hospitalization is reported. Screenin:14 [facility] ED Fall Risk Assessment (Adult) History of falling in the last 3 months, bp including since admission No falls in past 3 months (0 pts) Confusion or Disorientation No (0 pts) Intoxicated or Sedated No (0 pts) Impaired Gait No (0 pts) Mobility Assist Device Used No (0 pt) Altered Elimination No (0 pt) Score/Fall Risk Level 0 - 2 = Low Risk Oriented to surroundings. Abuse screen: Denies threats or abuse. Denies injuries from another. Nutritional screening: No deficits noted. Tuberculosis screening: No symptoms or risk factors identified. Assessment: 15:46 Reassessment: Pt's sister Christine Lake [phone]. aa5 17:00 Reassessment: Patient appears in no apparent distress at this time. Patient is alert, bp oriented x 3, equal unlabored respirations, skin warm/dry/pink. Vital Signs: 15:13 BP 146 / 112; Pulse 92; Resp 19 S; Temp 97.1(TE); Pulse Ox 100% on R/A; Weight 99.79 kg aa5 (R); Height 5 ft. 9 in. (R); 17:20 BP 142 / 101; Pulse 64; Resp 16; Pulse Ox 100% ; bp 15:13 Body Mass Index 32.49 (99.79 kg, 175.26 cm) aa5 ED Course: 15:13 Arm band placed on Patient placed in an exam room, on a stretcher. aa5 15:33 Patient arrived in ED. mr 15:34 Myriam Zarate PA-C is [facility]. sb4 15:34 James Marshall MD is Attending Physician. sb4 15:40 James Marshall MD is Attending Physician. rn 15:41 Josiah Beltran, FABRICE is Primary Nurse. bp 15:45 Triage completed. aa5 16:14 Patient has correct armband on for positive identification. Client placed on continuous bp cardiac and pulse oximetry monitoring. NIBP monitoring applied. in store demonstrator on. Pulse ox on. NIBP on. 16:14 Initial lab(s) drawn, by me, sent to lab. Inserted saline lock: 22 gauge in right bp antecubital area, using aseptic technique. Blood collected. Flushed with 10 mL NS. Patient maintains SpO2 saturation greater than 95% on room air. 16:23 XRAY Chest (1 view) In Process Unspecified. EDMS 17:07 CT Head Brain wo Cont In Process Unspecified. EDMS 17:[address] In Process Unspecified. EDMS 18:32 No provider procedures requiring assistance completed. IV discontinued, intact, bp bleeding controlled, No redness/swelling at site. Pressure dressing applied. Administered Medications: 16:11 Drug: NS 0.9% IV 1000 ml IV at 1000 ml once; to be given as a bolus over 60 minutes bp Route: IV; Rate: 1000 ml; Site: right antecubital; 18:33 Follow up: IV Status: Completed infusion bp 16:11 Drug: Diazepam PO 2 mg PO once Route: PO; bp 18:33 Follow up: Response: No adverse reaction bp 16:13 Drug: Ondansetron IVP 4 mg IVP once; over 2 minutes Route: IVP; Site: right antecubital;bp 18:33 Follow up: Response: No adverse reaction bp Medication: 18:33 VIS not applicable for this client. bp Outcome: 17:51 Discharge ordered by MD. rn 18:32 Discharged to home ambulatory, with family, bp 18:32 Condition: stable 18:32 Discharge instructions given to patient, Instructed on discharge instructions, follow up and referral plans. medication usage, Demonstrated understanding of instructions, follow-up care, medications, Prescriptions given X 1, 18:34 Patient left the ED. bp Signatures: Dispatcher [employer] [facility] Tejas Ora, Reg Reg mr James Marshall MD MD rn Calderon, Audri RN RN aa5 Josiah Beltran RN RN Myriam Tyson, PALisa PA-C sb4 Corrections: (The following items were deleted from the chart) 15:46 15:45 Home Meds: Albuterol Inhl; aa5 aa5
--- NOTE | 2024-07-09 17:51 | EDPHYS ---
Physician Documentation [facility] Name: Kurt Christianson Age: 24 yrs Sex: Male : 2000 Arrival Date: 07/09/2024 Time: 15:32 Bed 18 Private MD: ED Physician James Marshall HPI: 07/09 16:13 This 24 yrs old Male presents to ER via Ambulatory with complaints of feels like going rn to have a seizure. 16:13 Patient reports "feels weird". Reports feels like is going to have a seizure. Has known rn seizure disorder, takes Depakote he thinks. No seizure today. Seizures are from previous head injuries and traumatic brain injury. Reports subjective fever and chills with symptoms of sinus infection with cough. No shortness of breath. No abdominal pain. Reports vomiting. No blood in stool. No changes in medication and has not run out of medication. Patient thinks he took his seizure medicine earlier today.. Onset: The symptoms/episode began/occurred today. Severity of symptoms: At their worst the symptoms were mild in the emergency department the symptoms are unchanged. The patient has experienced similar episodes in the past. The patient has not recently seen a physician. Historical: - Allergies: 15:45 NKDA; aa5 - Home Meds: 15:45 Depakote Oral [Active]; aa5 - PMHx: 15:45 Asthma; HTN (Irregular heart rat); Irregular heart rate; Seizure; TBI; Dementia; aa5 - PSHx: 15:45 brain surgery; Appendectomy; aa5 - Immunization history:: Adult Immunizations unknown. - Infectious Disease History:: Denies. - Social history:: Smoking status: Patient reports the use of cigarette tobacco products. - Family history:: not pertinent. - Hospitalizations: : No recent hospitalization is reported. ROS: 16:13 Constitutional: Positive for subjective fever and chills Eyes: Negative for injury, rn pain, redness, and discharge, ENT: Positive for sinus pressure and congestion Neck: Negative for neck pain or swelling Cardiovascular: Positive for chest pain when taking a deep breath and coughing Respiratory: Positive for cough, negative for shortness of breath Abdomen/GI: Negative for abdominal pain, positive for vomiting Back: Negative for injury and pain, MS/Extremity: Negative for injury and deformity, Skin: Negative for injury, rash, and discoloration, Neuro: Positive for headache and generalized weakness with malaise. No seizure activity Exam: 16:13 Constitutional: This is a well developed, well nourished patient who is awake, alert, rn and in no acute distress. Seems anxious Head/Face: Normocephalic, atraumatic. Eyes: Pupils dilated, right eye more dilated than left ENT: Dry mucous membranes, no stridor Neck: No masses or meningismus Cardiovascular: Regular rate and rhythm. No pulse deficits. Respiratory: No increased work of breathing, no retractions or nasal flaring. Abdomen/GI: Soft, nontender MS/ Extremity: Pulses equal, no cyanosis. Neuro: Awake and alert, GCS 15, oriented to person, place, time, and situation. Cranial nerves II-XII grossly intact. Motor strength 5/5 in all extremities. Sensory grossly intact. Vital Signs: 15:13 BP 146 / 112; Pulse 92; Resp 19 S; Temp 97.1(TE); Pulse Ox 100% on R/A; Weight 99.79 kg aa5 (R); Height 5 ft. 9 in. (R); 17:20 BP 142 / 101; Pulse 64; Resp 16; Pulse Ox 100% ; bp 15:13 Body Mass Index 32.49 (99.79 kg, 175.26 cm) aa5 MDM: 15:36 Medical Screening Exam initiated sb4 17:50 Differential Diagnosis Sinusitis, epileptic seizures, dehydration. Data reviewed: vital rn signs, nurses notes, lab test result(s), radiologic studies, CT scan, plain films, and as a result, I will discharge patient. Counseling: I had a detailed discussion with the patient and/or guardian regarding the historical points, exam findings, and any diagnostic results supporting the discharge/admit diagnosis, lab results, radiology results, the need for outpatient follow up, to return to the emergency department if symptoms worsen or persist or if there are any questions or concerns that arise at home. Special discussion: I discussed with the patient/guardian in detail that at this point there is no indication for admission to the hospital. It is understood, however, that if the symptoms persist or worsen the patient needs to return immediately for re-evaluation. ED course: Patient feels much better, no seizure here. Workup negative including CT head and CT angio head. Will discharge home with antibiotics for suspected upper respiratory/sinus infection.. 07/09 15:47 Order name: CBC with Diff; Complete Time: 16:54 rn 07/09 15:47 Order name: Basic Metabolic Panel; Complete Time: 16:54 rn 07/09 15:47 Order name: Flu; Complete Time: 16:54 rn 07/09 15:47 Order name: SARS-COV-2 Antigen Rapid; Complete Time: 16:54 rn 07/09 15:47 Order name: CT Head Brain wo Cont; Complete Time: 17:38 rn 07/09 15:47 Order name: XRAY Chest (1 view); Complete Time: 16:54 rn 07/09 15:47 Order name: Head Angio CT; Complete Time: 17:38 rn 07/09 15:47 Order name: IV Start; Complete Time: 16:13 rn Administered Medications: 16:11 Drug: NS 0.9% IV 1000 ml IV at 1000 ml once; to be given as a bolus over 60 minutes bp Route: IV; Rate: 1000 ml; Site: right antecubital; 18:33 Follow up: IV Status: Completed infusion bp 16:11 Drug: Diazepam PO 2 mg PO once Route: PO; bp 18:33 Follow up: Response: No adverse reaction bp 16:13 Drug: Ondansetron IVP 4 mg IVP once; over 2 minutes Route: IVP; Site: right antecubital;bp 18:33 Follow up: Response: No adverse reaction bp Disposition Summary: 07/09/24 17:51 Discharge Ordered Notes: Location: Home rn Problem: new rn Symptoms: have improved rn Condition: Stable rn Diagnosis - Disease of upper respiratory tract, unspecified rn Followup: rn - With: Private Physician - When: As needed - Reason: Recheck today's complaints, Re-evaluation by your physician Discharge Instructions: - Discharge Summary Sheet rn - Upper Respiratory Infection, Adult rn Forms: - Medication Reconciliation Form rn - Antibiotic morning show host - Prescription Opioid Use rn - Patient Portal Instructions rn - Leadership Thank You Letter rn Prescriptions: - Augmentin 875-125 mg Oral Tablet - take 1 tablet ORAL route every 12 hours for 10 days; 20 tablet; Refills: 0, rn Product Selection Permitted Signatures: Dispatcher [employer] EDJames Recio MD MD rn Calderon, Audri, RN RN aa5 Josiah Beltran RN RN Myriam Tyson PA-C PALisa sb4 Corrections: (The following items were deleted from the chart) 15:46 15:45 Home Meds: Albuterol Inhl; aa5 aa5 15:47 15:47 CBC+H.LAB.BRZ ordered. EDMS EDMS 15:47 15:47 BASIC METABOLIC PANEL+C.LAB.BRZ ordered. EDMS EDMS 15:47 15:47 Influenza Screen (A \\T\\ B)+BA.LAB.BRZ ordered. EDMS EDMS 15:47 15:47 SARS-COV-2 Antigen Rapid+I.LAB.BRZ ordered. EDMS EDMS
[2024-07-09 23:15] VITALS: BP 142/101; O2SAT 100
== END 2024-07-09 18:34 | disposition home or self-care (01) ==
LOC: ER 15:32
DX: J39.9 Disease of upper respiratory tract, unspecified (principal); G40.909 Epilepsy, unspecified, not intractable, without status epilepticus; Z11.52 Encounter for screening for COVID-19
CPT/HCPCS: 36415; 70450; 70496; 71045; 80048; 85025; 87804; 87811; 96361; 96374; 99285; J2405; J7030; Q9967

== ENCOUNTER 2024-07-23 23:23 | Emergency (ER) | payer SELFPAY ==
[2011-09-17 11:55] VITALS: BP 121/70
[2024-07-24] MEDS ORDERED: LORazepam 2 MG/ML VIAL ONE (00:19)
[2024-07-24] MEDS ORDERED: HYDROCODONE/APAP 5/325 MG TAB ONE (00:26)
--- NOTE | 2024-07-24 01:12 | EDPHYS ---
Physician Documentation [facility] Name: Kurt Christianson Age: 24 yrs Sex: Male : 2000 Arrival Date: 07/23/2024 Time: 23:23 Bed 17 Private MD: ED Physician Giorgi Hodges HPI: 07/23 23:44 This 24 yrs old Male presents to ER via Unassigned with complaints of anxiety. sp3 23:44 24-year-old male with a history of anxiety, traumatic brain injury, presents to the ED sp3 with chief complaint anxiety and continued chronic pain symptoms of headache and neck pain. Patient states he has recently been going to a chiropractor which she states may have "done something". Today he called EMS for extreme anxiety. He denies any suicidal ideation currently or in the immediate past, homicidal ideation, psychosis or any other psychiatric symptoms. He denies any recurrent trauma or other injury. ROS otherwise negative for other somatic symptoms.. Historical: - Allergies: 07/24 03:07 Morphine; jb4 - PMHx: 03:07 Asthma; HTN (Irregular heart rat); Irregular heart rate; Seizure; TBI; jb4 - PSHx: 03:07 Appendectomy; brain surgery; jb4 ROS: 07/23 23:45 Constitutional: Negative for fever, chills, and weight loss, Eyes: Negative for injury, sp3 pain, redness, and discharge, ENT: Negative for injury, pain, and discharge, Neck: Negative for injury, pain, and swelling, Cardiovascular: Negative for chest pain, palpitations, and edema, Respiratory: Negative for shortness of breath, cough, wheezing, and pleuritic chest pain, Abdomen/GI: Negative for abdominal pain, nausea, vomiting, diarrhea, and constipation, Back: Negative for injury and pain, MS/Extremity: Negative for injury and deformity, Skin: Negative for injury, rash, and discoloration, Neuro: Negative for headache, weakness, numbness, tingling, and seizure, Allergy/Immunology: Negative for hives, rash, and allergies, Endocrine: Negative for neck swelling, polydipsia, polyuria, polyphagia, and marked weight changes, Hematologic/Lymphatic: Negative for swollen nodes, abnormal bleeding, and unusual bruising, All other systems are negative, Exam: 23:51 Constitutional: This is a well developed, well nourished patient who is awake, alert, sp3 and in no acute distress. Head/Face: Normocephalic, atraumatic. Eyes: Pupils equal round and reactive to light, extra-ocular motions intact. Lids and lashes normal. Conjunctiva and sclera are non-icteric and not injected. Cornea within normal limits. Periorbital areas with no swelling, redness, or edema. ENT: Nares patent. No nasal discharge, no septal abnormalities noted. External auditory canals are clear. Oropharynx with no redness, swelling, or masses, exudates, or evidence of obstruction, uvula midline. Mucous membranes moist. Chest/axilla: Normal chest wall appearance and motion. Nontender with no deformity. No lesions are appreciated. Cardiovascular: Regular rate and rhythm with a normal S1 and S2. No gallops, murmurs, or rubs. Normal PMI, no JVD. No pulse deficits. Respiratory: Lungs have equal breath sounds bilaterally, clear to auscultation and percussion. No rales, rhonchi or wheezes noted. No increased work of breathing, no retractions or nasal flaring. Abdomen/GI: Soft, non-tender, with normal bowel sounds. No distension or tympany. No guarding or rebound. No evidence of tenderness throughout. Back: No spinal tenderness. No costovertebral tenderness. Full range of motion. Skin: Warm, dry with normal turgor. Normal color with no rashes, no lesions, and no evidence of cellulitis. MS/ Extremity: Pulses equal, no cyanosis. Neurovascular intact. Full, normal range of motion. Neuro: Awake and alert, GCS 15, oriented to person, place, time, and situation. Cranial nerves II-XII grossly intact. Motor strength 5/5 in all extremities. Sensory grossly intact. Cerebellar exam normal. Normal gait. 23:51 Neck: Patient has pain to palpation on the right muscular neck region. No neurological dysfunction, vascular dysfunction or abnormal exam noted., 23:51 Psych: Patient very anxious. He denies any suicidal ideation currently or in the immediate past. He denies homicidal ideation currently with the immediate past. He also denies any psychosis. He is not currently on any antipsychotic medications.. Vital Signs: 07/24 03:00 BP 149 / 74; Pulse 108; Resp 16; Temp 98.6; Pulse Ox 100% on R/A; jb4 MDM: 07/23 23:29 Medical Screening Exam initiated sp3 23:53 Data reviewed: vital signs, nurses notes, EMS record, old medical records. ED course: sp3 24-year-old male with severe anxiety and other past medical history above. Differential diagnosis includes anxiety versus chronic pain versus other mask psychiatric illness. Currently patient does not meet LAVINIA criteria or require admission. Will start with Ativan 2 mg IV to see how that works with his anxiety. Disposition pending workup and patient course.. 07/24 01:11 ED course: Patient now sleeping with no anxiety. We will safely discharge home at this sp3 time. Will refill tramadol.. 07/23 23:31 Order name: IV Saline Lock; Complete Time: 00:30 sp3 Administered Medications: 00:30 Drug: Ativan IVP 2 mg IVP once Route: IVP; Site: right antecubital; jb4 01:00 Follow up: Response: No adverse reaction; Marked relief of symptoms jb4 00:36 Drug: HYDROcodone-acetaminophen PO 5 mg-325 mg 1 tabs PO once {Note: Pt denies allergy jb4 to Hydrocodone.} Route: PO; 01:30 Follow up: Response: No adverse reaction; Marked relief of symptoms jb4 Disposition Summary: 07/24/24 01:11 Discharge Ordered Notes: Location: Home sp3 Condition: Stable sp3 Diagnosis - Anxiety sp3 Followup: sp3 - With: Private Physician - When: Upon discharge from the Emergency Department - Reason: Continuance of care Discharge Instructions: - Discharge Summary Sheet sp3 - Managing Anxiety, Adult sp3 Forms: - Medication Reconciliation Form sp3 - Antibiotic Education sp3 - Prescription Opioid Use sp3 - Patient Portal Instructions sp3 - Leadership Thank You Letter sp3 Prescriptions: - Tramadol 50 mg Oral Tablet - take 1 tablet ORAL route every 8 hours as needed; 12 tablet; Refills: 0, sp3 Product Selection Permitted Signatures: Matthew Calvert RN RN jb4 Giorgi Hodges MD MD sp3
--- NOTE | 2024-07-24 02:24 | ER ---
Nurse's Notes [facility] Name: Kurt Christianson Age: 24 yrs Sex: Male : 2000 Arrival Date: 07/23/2024 Time: 23:23 Bed 17 Private MD: Diagnosis: Anxiety Presentation: 07/24 00:00 Chief complaint: Mental health accompanied pt to ED in the back of the ambulance. Per jb4 mental health, pt never mentioned SI or HI to him but did appear to have a panic attack. Pt reportedly mention SI to the EMS. Pt denies HI or SI at this time states '" No, I'd never fucking kill myself. I am on probation and I didn't want to go back to [facility] so I called Mental health because they actually listen!". 00:00 Coronavirus screen: At this time, the client does not indicate any symptoms associated jb with coronavirus-19. Ebola Screen: No symptoms or risks identified at this time. 00:00 Method Of Arrival: EMS: [place] [address] 03:00 Initial Sepsis Screen: Does the patient meet any 2 criteria? HR > 90 bpm. Yes Does the jb4 patient have a suspected source of infection? No. Patient's initial sepsis screen is negative. Risk Assessment: Do you want to hurt yourself or someone else? Patient reports no desire to harm self or others. Onset of symptoms was July 24, 2024. Transition of care: patient was not received from another setting of care. 03:00 Acuity: ANABEL 3 jb4 Historical: - Allergies: 03:07 Morphine; jb4 - PMHx: 03:07 Asthma; HTN (Irregular heart rat); Irregular heart rate; Seizure; TBI; jb4 - PSHx: 03:07 Appendectomy; brain surgery; jb4 Screenin:00 [facility] ED Fall Risk Assessment (Adult) History of falling in the last 3 months, jb4 including since admission No falls in past 3 months (0 pts) Confusion or Disorientation No (0 pts) Intoxicated or Sedated No (0 pts) Impaired Gait No (0 pts) Mobility Assist Device Used No (0 pt) Altered Elimination No (0 pt) Score/Fall Risk Level 0 - 2 = Low Risk Oriented to surroundings, Maintained a safe environment. Abuse screen: Denies threats or abuse. Nutritional screening: No deficits noted. Tuberculosis screening: No symptoms or risk factors identified. Assessment: 00:00 General: Appears in no apparent distress. uncomfortable, Behavior is cooperative, jb4 agitated, anxious. Pain: Complains of pain in back, left arm and neck Pain does not radiate. Pain currently is 8 out of 10 on a pain scale. Neuro: Level of Consciousness is awake, alert, obeys commands, Oriented to person, place, time, situation. Cardiovascular: Patient's skin is warm and dry. Respiratory: Airway is patent Respiratory effort is even, unlabored, Respiratory pattern is regular, symmetrical. Derm: Skin is intact, Skin is pink, warm \\T\\ dry. Musculoskeletal: Circulation, motion, and sensation intact. Range of motion: intact in all extremities. 01:00 Reassessment: Patient appears in no apparent distress at this time. Patient and/or jb4 family updated on plan of care and expected duration. Pain level reassessed. Patient is alert, oriented x 3, equal unlabored respirations, skin warm/dry/pink. 02:00 Reassessment: Patient appears in no apparent distress at this time. Patient and/or jb4 family updated on plan of care and expected duration. Pain level reassessed. Patient is alert, oriented x 3, equal unlabored respirations, skin warm/dry/pink. Verified with patient that he had all belongings. Pt put his wallet in his right pocket and check his other pockets for his belongings. Pt states " Where is my phone?" pt informed his phone fell out of the bed and his mother had it and was waiting in the car. When pt was assisted to the vehicle, pt's mother showed him his phone. Psych: 00:00 [place] Suicide Severity Screening: In the past month, have you wished you were jb4 or wished you could go to sleep and not wake up? Patient responds "No." "In the past month, have you actually had any thoughts of killing yourself?" Patient responds "no." "In your lifetime, have you ever done anything, started to do anything, or prepared to do anything to end your life?" Patient responds "no.". Subjective: Patient's mood is irritable, Delusions are denied, Hallucinations are denied. Objective: Patient is cooperative, defensive, Speech is normal. Interventions: Removed personal items and placed in bag. Patient placed in hospital gown. Searched person for dangerous items. Safety Checks: Personal items have been removed. Door is open. No visitors are present at this time. Patient uses alcohol. Vital Signs: 03:00 BP 149 / 74; Pulse 108; Resp 16; Temp 98.6; Pulse Ox 100% on R/A; jb4 ED Course: 07/23 23:27 Patient arrived in ED. rv1 23:29 Giorgi Hodges MD is Attending Physician. sp3 07/24 00:00 Patient has correct armband on for positive identification. Bed in low position. Call jb4 light in reach. Side rails up X 1. Provided Education on: plan of care. 02:20 No provider procedures requiring assistance completed. IV discontinued, intact, jb4 bleeding controlled, No redness/swelling at site. Pressure dressing applied. 03:06 Triage completed. jb4 Administered Medications: 00:30 Drug: Ativan IVP 2 mg IVP once Route: IVP; Site: right antecubital; jb4 01:00 Follow up: Response: No adverse reaction; Marked relief of symptoms jb4 00:36 Drug: HYDROcodone-acetaminophen PO 5 mg-325 mg 1 tabs PO once {Note: Pt denies allergy jb4 to Hydrocodone.} Route: PO; 01:30 Follow up: Response: No adverse reaction; Marked relief of symptoms jb4 Outcome: 01:11 Discharge ordered by . sp3 02:20 Discharged to home ambulatory, with family, jb4 02:20 Condition: stable 02:20 Discharge instructions given to patient, Instructed on discharge instructions, follow up and referral plans. medication usage, Demonstrated understanding of instructions, follow-up care, medications, Prescriptions given X 1, 02:23 Patient left the ED. jb4 Signatures: Matthew Calvert, RN RN jb4 Giorgi Hodges MD MD sp3 Shyann Schaefer rv1 Corrections: (The following items were deleted from the chart) 18:46 02:00 Reassessment: Patient appears in no apparent distress at this time. Patient jb4 and/or family updated on plan of care and expected duration. Pain level reassessed. Patient is alert, oriented x 3, equal unlabored respirations, skin warm/dry/pink. jb4
== END 2024-07-24 02:23 | disposition home or self-care (01) ==
LOC: ER 23:23
DX: F41.9 Anxiety disorder, unspecified (principal); Z87.820 Personal history of traumatic brain injury
CPT/HCPCS: 96374; 99284

== ENCOUNTER 2024-07-28 18:45 | Emergency (ER) | payer SELFPAY ==
[2024-07-28 19:04] LABS: Absolute Eosinophils 0.1 K/uL (0-0.5); Absolute Lymphocytes (CBC) 2.1 K/uL (0.7-4.9); Absolute Monocytes 0.7 K/uL (0.1-1.3); Absolute Neutrophil 2.7 K/uL (1.8-8.0); Basophils % 0.8 % (0-1.3); Hemoglobin 15.7 g/dL (13.6-17.9); Lymphocytes % 37.1 % (15.3-44.8); MCH 31.9 pg (27.0-35.0); MCHC 34.9 g/dL (32.0-36.0); MCV 91.6 fL (80-100); MPV 8.1 fL (7.6-11.3); Monocytes % 12.6 % (3.3-12.3); Neutrophils % 48.5 % (41.7-73.7); Nucleated Red Blood Cells % 0.1 % (0-0); Platelets 327 thou/uL (152-406); RBC Red Blood Cell Count 4.92 M/uL (4.33-5.43); Red Cell Distribution Width 13.2 % (12.1-15.2)
--- NOTE | 2024-07-28 19:12 | ER ---
Nurse's Notes [facility] Name: Kurt Christianson Age: 24 yrs Sex: Male : 2000 Arrival Date: 07/28/2024 Time: 18:45 Bed 3 Private MD: Diagnosis: PCP abuse, methamphetamine abuse, substance abuse Presentation: 07/28 18:51 Chief complaint: EMS states: Mother called EMS for AMS. PT reports to using meth and ss PCP this evening. Pt states, "I'm high as F*ck". Coronavirus screen: Client denies travel out of the [place] in the last 14 days. Ebola Screen: Patient denies exposure to infectious person. Patient denies travel to an Ebola-affected area in the 21 days before illness onset. Initial Sepsis Screen: Does the patient meet any 2 criteria? No. Patient's initial sepsis screen is negative. Does the patient have a suspected source of infection? No. Patient's initial sepsis screen is negative. Risk Assessment: Do you want to hurt yourself or someone else? Patient reports no desire to harm self or others. Onset of symptoms was July 28, 2024. 18:51 Method Of Arrival: Ambulatory ss 18:51 Acuity: ANABEL 2 ss 18:51 Care prior to arrival: Medication(s) given: Ativan 2.5 mg IVP IV initiated. 20 GA, in ss the right antecubital area. Historical: - Allergies: 18:53 Morphine; ss - PMHx: 18:53 Asthma; HTN (Irregular heart rat); Irregular heart rate; Seizure; TBI; ss - PSHx: 18:53 Appendectomy; brain surgery; ss - Immunization history:: Adult Immunizations unknown. - Infectious Disease History:: Denies. - Social history:: Smoking status: Patient reports the use of cigarette tobacco products. Screenin:55 [facility] ED Fall Risk Assessment (Adult) History of falling in the last 3 months, iw including since admission No falls in past 3 months (0 pts) Confusion or Disorientation Yes (5 pts) Intoxicated or Sedated Yes (3 pts) Impaired Gait No (0 pts) Mobility Assist Device Used No (0 pt) Altered Elimination No (0 pt) Score/Fall Risk Level 3 or more points = High Risk Oriented to surroundings, Maintained a safe environment. Abuse screen: Denies threats or abuse. Nutritional screening: No deficits noted. Tuberculosis screening: No symptoms or risk factors identified. Assessment: 18:53 General: Appears in no apparent distress. Behavior is agitated, anxious. Pain: Denies iw pain. Neuro: Level of Consciousness is awake, alert, obeys commands, Oriented to person, place, Moves all extremities. Full function. Cardiovascular: Rhythm is sinus tachycardia. Respiratory: Respiratory effort is even, unlabored, Respiratory pattern is regular, symmetrical. GI: Abdomen is non-distended. Derm: Skin is intact, Skin is clammy, Skin is normal. Musculoskeletal: Range of motion: intact in all extremities. 19:05 General: Appears in no apparent distress. Behavior is calm, cooperative. Pain: Denies bm8 pain. Neuro: Level of Consciousness is awake, alert, obeys commands, Oriented to person, place, Moves all extremities. Full function. Cardiovascular: Capillary refill < 3 seconds in bilateral fingers Patient's skin is warm and dry. Rhythm is sinus tachycardia. Respiratory: Airway is patent Respiratory effort is even, unlabored, Respiratory pattern is regular, symmetrical, Breath sounds are clear bilaterally. GI: Abdomen is non-distended. : No signs and/or symptoms were reported regarding the genitourinary system. EENT: No signs and/or symptoms were reported regarding the EENT system. Derm: Skin is intact, Skin is clammy, Skin is normal. Musculoskeletal: Range of motion: intact in all extremities. 19:13 General: Called listed Emergency contact from pt [phone] with no response. Pt bm8 gave another phone number [phone] male voice answered and stated that he would have the original number call back. Currently standing by to receive phone call.. 19:21 General: mother called back and stated that she would be here between 30-45 mins. pt bm8 discharge waiting until he has safe ride home. 19:47 Reassessment: mother arrived to take pt home. bm8 Overdose: 19:51 [place] Suicide Severity Screening: "In the past month, have you wished you were bm8 or wished you could go to sleep and not wake up?" Patient responds "no." "In the past month, have you actually had any thoughts of killing yourself?" Patient responds "no." "In your lifetime, have you ever done anything, started to do anything, or prepared to do anything to end your life?" Patient responds "no.". Vital Signs: 18:51 BP 141 / 85; Pulse 137; Resp 24; Pulse Ox 96% on R/A; Weight 99.79 kg; Height 5 ft. 8 ss in. ; Pain 0/10; 19:47 BP 134 / 85; Pulse 108; Resp 20; Temp 98.7; Pulse Ox 95% ; Pain 0/10; bm8 18:51 Body Mass Index 33.45 (99.79 kg, 172.72 cm) ss 18:51 Pain Scale: Adult ss 19:47 Pain Scale: Adult bm8 [place]ox Coma Score: 19:47 Eye Response: spontaneous(4). Motor Response: obeys commands(6). Verbal Response: bm8 oriented(5). Total: 15. ED Course: 18:46 Patient arrived in ED. iw 18:51 Initial lab(s) drawn, by me, held in ED. Maintain EMS IV. Dressing intact. Good blood iw return noted. Site clean \\T\\ dry. Gauge \\T\\ site: 20 RAC. Flushed with 10 mL NS. 18:52 Triage completed. ss 18:53 Arm band placed on right wrist. ss 19:03 Giorgi Hodges MD is Attending Physician. sp3 19:05 Richie Stroud, FABRICE is Primary Nurse. bm8 19:05 Patient has correct armband on for positive identification. Bed in low position. Call bm8 light in reach. Side rails up X 1. Client placed on continuous cardiac and pulse oximetry monitoring. NIBP monitoring applied. conveyor monitor on. Pulse ox on. NIBP on. Door closed. Noise minimized. Warm blanket given. Pillow given. Verbal reassurance given. Head of bed elevated. 19:47 No provider procedures requiring assistance completed. IV discontinued, intact, bm8 bleeding controlled, No redness/swelling at site. Pressure dressing applied. 19:47 Provided Education on: post er care. bm8 Administered Medications: No medications were administered Medication: 18:55 VIS not applicable for this client. iw 19:05 VIS not applicable for this client. bm8 Outcome: 19:11 Discharge ordered by . sp3 19:47 Discharged to home ambulatory, with family, bm8 19:47 Condition: stable 19:47 Discharge instructions given to patient, family, Instructed on discharge instructions, follow up and referral plans. no drinking with medication, no driving heavy equipment, safety practices, STOP USING PCP 19:52 Patient left the ED. bm8 Signatures: Rossy Zhu RN RN Chinyere Romero RN RN Giorgi Brewer MD MD sp3 Richie Stroud RN RN bm8
--- NOTE | 2024-07-28 19:12 | EDPHYS ---
Physician Documentation [facility] Name: Kurt Christianson Age: 24 yrs Sex: Male : 2000 Arrival Date: 07/28/2024 Time: 18:45 Bed 3 Private MD: ED Physician Giorgi Hodges HPI: 07/28 19:08 This 24 yrs old Male presents to ER via Ambulatory with complaints of Drug Abuse. sp3 19:08 24-year-old male with history of asthma and hypertension now presents to the ED with sp3 chief complaint "I am high" after doing PCP/mouth. He does not have any complaints. Is unknown who called EMS. Review systems negative for headache, chest pain, shortness of breath, abdominal pain, vomiting, diarrhea, syncope, seizures, or any other signs or symptoms on ROS at this time.. Historical: - Allergies: 18:53 Morphine; ss - PMHx: 18:53 Asthma; HTN (Irregular heart rat); Irregular heart rate; Seizure; TBI; ss - PSHx: 18:53 Appendectomy; brain surgery; ss - Immunization history:: Adult Immunizations unknown. - Infectious Disease History:: Denies. - Social history:: Smoking status: Patient reports the use of cigarette tobacco products. ROS: 19:09 Constitutional: Negative for fever, chills, and weight loss, Eyes: Negative for injury, sp3 pain, redness, and discharge, Neck: Negative for injury, pain, and swelling, Respiratory: Negative for shortness of breath, cough, wheezing, and pleuritic chest pain, Abdomen/GI: Negative for abdominal pain, nausea, vomiting, diarrhea, and constipation, Back: Negative for injury and pain, MS/Extremity: Negative for injury and deformity, Neuro: Negative for headache, weakness, numbness, tingling, and seizure, 19:09 All other systems are negative, Exam: 19:09 Constitutional: This is a well developed, well nourished patient who is awake, alert, sp3 and in no acute distress. Head/Face: Normocephalic, atraumatic. Eyes: Pupils equal round and reactive to light, extra-ocular motions intact. Lids and lashes normal. Conjunctiva and sclera are non-icteric and not injected. Cornea within normal limits. Periorbital areas with no swelling, redness, or edema. ENT: Nares patent. No nasal discharge, no septal abnormalities noted. External auditory canals are clear. Oropharynx with no redness, swelling, or masses, exudates, or evidence of obstruction, uvula midline. Mucous membranes moist. Neck: Trachea midline, no thyromegaly or masses palpated, and no cervical lymphadenopathy. Supple, full range of motion without nuchal rigidity, or vertebral point tenderness. No Meningismus. Chest/axilla: Normal chest wall appearance and motion. Nontender with no deformity. No lesions are appreciated. Respiratory: Lungs have equal breath sounds bilaterally, clear to auscultation and percussion. No rales, rhonchi or wheezes noted. No increased work of breathing, no retractions or nasal flaring. Abdomen/GI: Soft, non-tender, with normal bowel sounds. No distension or tympany. No guarding or rebound. No evidence of tenderness throughout. Back: No spinal tenderness. No costovertebral tenderness. Full range of motion. Skin: Warm, dry with normal turgor. Normal color with no rashes, no lesions, and no evidence of cellulitis. MS/ Extremity: Pulses equal, no cyanosis. Neurovascular intact. Full, normal range of motion. Neuro: Awake and alert, GCS 15, oriented to person, place, time, and situation. Cranial nerves II-XII grossly intact. Motor strength 5/5 in all extremities. Sensory grossly intact. Cerebellar exam normal. Normal gait. Psych: Awake, alert, with orientation to person, place and time. Behavior, mood, and affect are within normal limits. 19:09 Cardiovascular: Patient tachycardic at 120 bpm coming down from initially 137. Respiratory rate 18. Patient resting comfortably in no acute distress., 19:10 ECG was reviewed by the Attending Physician. EKG demonstrates sinus tachycardia at 130 sp3 bpm with normal intervals, normal QRS, normal axis, nonspecific rate related changes without evidence of acute ischemia. Vital Signs: 18:51 BP 141 / 85; Pulse 137; Resp 24; Pulse Ox 96% on R/A; Weight 99.79 kg; Height 5 ft. 8 ss in. ; Pain 0/10; 19:47 BP 134 / 85; Pulse 108; Resp 20; Temp 98.7; Pulse Ox 95% ; Pain 0/10; bm8 18:51 Body Mass Index 33.45 (99.79 kg, 172.72 cm) ss 18:51 Pain Scale: Adult ss 19:47 Pain Scale: Adult bm8 Alexis Coma Score: 19:47 Eye Response: spontaneous(4). Motor Response: obeys commands(6). Verbal Response: bm8 oriented(5). Total: 15. MDM: 19:03 Medical Screening Exam initiated sp3 19:10 Data reviewed: vital signs, nurses notes, EKG. ED course: 4-year-old male who states he sp3 did PCP and/or methamphetamine. Differential diagnosis includes drug use versus anxiety versus other process. There is SI, HI, psychosis. Heart rate trending down. We will discharge patient home as no further intervention is indicated.. 07/28 18:52 Order name: Acetaminophen 07/28 18:52 Order name: Basic Metabolic Panel 07/28 18:52 Order name: CBC with Diff; Complete Time: 19:12 07/28 18:52 Order name: ETOH Level 07/28 18:52 Order name: Hepatic Function 07/28 18:52 Order name: PT-INR 07/28 18:52 Order name: Ptt, Activated 07/28 18:52 Order name: Salicylate 07/28 18:52 Order name: EKG - Nurse/Tech; Complete Time: 19:02 07/28 18:52 Order name: IV Saline Lock; Complete Time: 18:53 07/28 18:52 Order name: Labs collected and sent; Complete Time: 19:02 07/28 18:52 Order name: Suicide Screening ([place]); Complete Time: 19:05 Administered Medications: No medications were administered Disposition Summary: 07/28/24 19:11 Discharge Ordered Notes: Location: Home sp3 Condition: Stable sp3 Diagnosis - PCP abuse, methamphetamine abuse, substance abuse sp3 Followup: sp3 - With: Private Physician - When: Upon discharge from the Emergency Department - Reason: Continuance of care Discharge Instructions: - Discharge Summary Sheet sp3 - Substance Use Disorder sp3 Forms: - Medication Reconciliation Form sp3 - Antibiotic Education sp3 - Prescription Opioid Use sp3 - Patient Portal Instructions sp3 - Leadership Thank You Letter sp3 Signatures: Dispatcher [employer] Rossy Rodrigues RN RN Chinyere Mcdonnell RN RN Giorgi Hodges MD MD sp3 Richie Stroud, RN RN bm8 Corrections: (The following items were deleted from the chart) 18:53 18:52 ACETAMINOPHEN+C.LAB.BRZ ordered. EDMS EDMS 18:53 18:52 BASIC METABOLIC PANEL+C.LAB.BRZ ordered. EDMS EDMS 18:53 18:52 CBC+H.LAB.BRZ ordered. EDMS EDMS 18:53 18:52 ETHANOL+C.LAB.BRZ ordered. EDMS EDMS 18:53 18:52 HEPATIC FUNCTION+C.LAB.BRZ ordered. EDMS EDMS 18:53 18:52 PROTIME (+INR)+COAG.LAB.BRZ ordered. EDMS EDMS 18:53 18:52 PTT, ACTIVATED+COAG.LAB.BRZ ordered. EDMS EDMS 18:53 18:52 SALICYLATE+C.LAB.BRZ ordered. EDMS EDMS 18:53 18:52 URINE DRUG SCREEN+UC.LAB.BRZ ordered. EDMS EDMS
[2024-07-28 19:28] LABS: PT Prothrombin Time 11.7 SECONDS (10.0-13.0); PTT, Activated Partial Thromb 24.8 SECONDS (24.3-36.9); Protime INR 1.03
[2024-07-28 19:40] LABS: ALT/SGPT 43 U/L (16-61); AST/SGOT 28 U/L (15-37); Albumin/Globulin Ratio 0.9 (1.1-1.8); Alkaline Phosphatase 80 U/L (45-117); Anion Gap 11.2 mEq/L (5.0-15.0); BUN Blood Urea Nitrogen 5 mg/dL (7-18); Bicarbonate 26 mEq/L (21-32); Bilirubin Direct < 0.2 mg/dL (0-0.2); Bilirubin Indirect, Calculated 0.2 mg/dL (0.2-0.8); Bilirubin Total 0.4 mg/dL (0.2-1.0); Globulin 4.5 g/dL (2.3-3.5); Glomerular Filtration Rate 105 ml/min (=/>90); Glucose Level 95 mg/dL (74-106); Potassium 4.2 mEq/L (3.5-5.1); Protein, Total 8.5 g/dL (6.4-8.2); Sodium Level 140 mEq/L (136-145)
[2024-07-28 19:58] VITALS: BP 134/85; TEMP 98.7; O2SAT 95
--- NOTE | 2024-07-30 12:08 | EKG ---
Test Date: 2024-07-28 Test Time: 18:52:10 Janitor Supervisor: ZAHIRA MEASUREMENT RESULTS: Intervals: Rate: 131 WV: 140 QRSD: 76 QT: 294 QTc: 434 [place]: P: 51 WV: 140 QRS: 53 T: 37 INTERPRETIVE STATEMENTS: Sinus tachycardia Otherwise normal ECG Compared to ECG 03/04/2003 15:07:00 Sinus rhythm no longer present Ventricular premature complex(es) no longer present Electronically Signed On 07-30-24 12:04:17 SHELL MACHINE OPERATOR by Orlando Pacheco
== END 2024-07-28 19:52 | disposition home or self-care (01) ==
LOC: ER 18:45
DX: F16.10 Hallucinogen abuse, uncomplicated (principal); F15.10 Other stimulant abuse, uncomplicated; Z72.0 Tobacco use
CPT/HCPCS: 36415; 80048; 80076; 80143; 80179; 82077; 85025; 85610; 85730; 93005; 99284

== ENCOUNTER 2024-08-14 00:26 | Emergency (ER) | payer SELFPAY ==
[2024-08-14] MEDS ORDERED: IBUPROFEN 400 MG TAB ONE (00:53)
--- NOTE | 2024-08-14 01:10 | EDPHYS ---
Physician Documentation [facility] Name: Kurt Christianson Age: 24 yrs Sex: Male : 2000 Arrival Date: 08/14/2024 Time: 00:26 Bed 12 Private MD: ED Physician Ahmet Alford HPI: 08/14 01:11 This 24 yrs old Male presents to ER via Law Enforcement with complaints of ec2 Angry. 01:11 Patient arrives today for evaluation of suicidal statements. Patient had many alcoholic ec2 beverages this evening, mother was concerned about her safety and subsequently called PD. Patient with history of TBI, mood disorder, has anger outburst after drinking. Patient is brought in by PD in handcuffs and here for possible suicidal statements with suicidal gestures after PD had showed up. Patient denies suicidality, once PD was gone, patient is cooperative, denies any plan. . Historical: - Allergies: 01:03 Morphine; bm8 - Home Meds: 01:03 Albuterol Inhl [Active]; Depakote Oral [Active]; unknown seizure medication Inhl bm8 [Active]; Buspirone Oral [Active]; Hydroxyzine Oral [Active]; gabapentin oral [Active]; - PMHx: 01:03 Asthma; HTN (Irregular heart rat); Irregular heart rate; Seizure; TBI; Dementia; bm8 - PSHx: 01:03 Appendectomy; brain surgery; bm8 - Immunization history:: Adult Immunizations up to date. - Infectious Disease History:: Denies. - Social history:: Smoking status: Patient reports the use of cigarette tobacco products, smokes one pack cigarettes per day. Patient uses alcohol, on a daily basis. claims drinking about a 6 pack/day. ROS: 01:12 Constitutional: as per hpi ec2 Exam: 01:12 Constitutional: GEN: NAD Head: atraumatic Eyes: EOMI Ears: External ears are ec2 normal. CV: regular rate LUNGS: no respiratory distress ABD: non-distended SKIN: no evidence of rashes MSK: no evidence of trauma. Psych: Intermittently agitated individual was redirectable Vital Signs: 01:02 BP 160 / 110; Pulse 99; Resp 18; Temp 99; Pulse Ox 100% ; Weight 99.79 kg; Height 5 ft. bm8 11 in. ; Pain 4/10; 01:13 BP 158 / 96; Pulse 95; Resp 18; Temp 99; Pulse Ox 99% ; Pain 0/10; bm8 01:02 Body Mass Index 30.68 (99.79 kg, 180.34 cm) bm8 01:02 Pain Scale: Adult bm8 01:13 Pain Scale: Adult bm8 [place] Coma Score: 01:13 Eye Response: spontaneous(4). Motor Response: obeys commands(6). Verbal Response: bm8 oriented(5). Total: 15. MDM: 01:10 Medical Screening Exam initiated ec2 01:13 Data reviewed: vital signs, nurses notes. ED course: Patient arrives today for anger ec2 outburst and concern for safety. Examination yields intermittently agitated individual who is redirectable and otherwise denies any suicidality. Patient is here on an LAIVNIA, ultimately I suspect patient's anger outbursts and suicidal statements are motivated by avoiding group home, consistently, patient is cooperative after PD had left. I discussed with the patient as well as the mother regarding her safety, his safety and their safety jointly and they felt comfortable with return to home. Will discharge home. Return precaution given.. Administered Medications: 01:15 Drug: Motrin (ibuprofen) 800 mg PO once Route: PO; bm8 01:15 Follow up: Response: No adverse reaction bm8 Disposition Summary: 08/14/24 01:10 Discharge Ordered Condition: Stable ec2 Diagnosis - Restlessness and agitation ec2 Followup: ec2 - With: Private Physician - When: - Reason: Re-evaluation by your physician Discharge Instructions: - Discharge Summary Sheet ec2 - Dysphoria ec2 Forms: - Medication Reconciliation Form ec2 - Antibiotic Education ec2 - Prescription Opioid Use ec2 - Patient Portal Instructions ec2 - Leadership Thank You Letter ec2 Signatures: Ahmet Alford MD MD ec2 Richie Stroud RN RN bm8 Corrections: (The following items were deleted from the chart) 01:12 01:11 Patient arrives today for evaluation of suicidal statements. Patient had many ec2 alcoholic beverages this evening, mother was concerned about her safety and subsequently called PD.. ec2
--- NOTE | 2024-08-14 01:10 | ER ---
Nurse's Notes [facility] Name: Kurt Christianson Age: 24 yrs Sex: Male : 2000 Arrival Date: 08/14/2024 Time: 00:26 Bed 12 Private MD: Diagnosis: Restlessness and agitation Presentation: 08/14 01:02 Chief complaint:. Coronavirus screen: Vaccine status: At this time, the client does not bm8 indicate any symptoms associated with coronavirus-19. Ebola Screen: Patient negative for fever greater than or equal to 101.5 degrees Fahrenheit, and additional compatible Ebola Virus Disease symptoms Patient denies exposure to infectious person. Patient denies travel to an Ebola-affected area in the 21 days before illness onset. No symptoms or risks identified at this time. Initial Sepsis Screen: Does the patient meet any 2 criteria? No. Patient's initial sepsis screen is negative. Does the patient have a suspected source of infection? No. Patient's initial sepsis screen is negative. Risk Assessment: Do you want to hurt yourself or someone else? Patient reports no desire to harm self or others. Onset of symptoms is unknown. 01:02 Method Of Arrival: Law Enforcement: [place] [employer] bm8 01:02 Acuity: ANABEL 3 bm8 01:07 Chief complaint: Patient states: my neck hurts is sore, mama thought i said something bm8 that i didn't and now I am here with the police. Triage Assessment: 01:03 General: Appears in no apparent distress. comfortable, Behavior is calm, cooperative, bm8 appropriate for age. Pain: Complains of pain in scalp Pain currently is 6 out of 10 on a pain scale. EENT: No deficits noted. No signs and/or symptoms were reported regarding the EENT system. Neuro: No deficits noted. Level of Consciousness is awake, alert, obeys commands, Oriented to person, place, time, situation, Appropriate for age. Cardiovascular: Capillary refill < 3 seconds in bilateral fingers toes Patient's skin is warm and dry. Respiratory: Airway is patent Respiratory effort is even, unlabored, Respiratory pattern is regular, symmetrical, Breath sounds are clear bilaterally. GI: Abdomen is flat. : No signs and/or symptoms were reported regarding the genitourinary system. Derm: No signs and/or symptoms reported regarding the dermatologic system. Musculoskeletal: Circulation, motion, and sensation intact. Capillary refill < 3 seconds, in bilateral fingers. Range of motion: intact in all extremities, Reports pain in scalp. Historical: - Allergies: :03 Morphine; bm8 - Home Meds: :03 Albuterol Inhl [Active]; Depakote Oral [Active]; unknown seizure medication Inhl bm8 [Active]; Buspirone Oral [Active]; Hydroxyzine Oral [Active]; gabapentin oral [Active]; - PMHx: 01:03 Asthma; HTN (Irregular heart rat); Irregular heart rate; Seizure; TBI; Dementia; bm8 - PSHx: 01:03 Appendectomy; brain surgery; bm8 - Immunization history:: Adult Immunizations up to date. - Infectious Disease History:: Denies. - Social history:: Smoking status: Patient reports the use of cigarette tobacco products, smokes one pack cigarettes per day. Patient uses alcohol, on a daily basis. claims drinking about a 6 pack/day. Screenin: [facility] ED Fall Risk Assessment (Adult) History of falling in the last 3 months, bm8 including since admission No falls in past 3 months (0 pts) Confusion or Disorientation No (0 pts) Intoxicated or Sedated Yes (3 pts) Impaired Gait No (0 pts) Mobility Assist Device Used No (0 pt) Altered Elimination No (0 pt) Score/Fall Risk Level 0 - 2 = Low Risk Oriented to surroundings, Maintained a safe environment, Educated pt \T\ family on fall prevention, incl call for assistance when getting out of bed, Assessed \T\ reinforced patient's understanding of fall precautions, Hourly rounding (assess needs \T\ fall precautionary measures) done, Used ambulatory aids as needed (educated on \T\ assisted with), Used gait belt as appropriate. Abuse screen: Denies threats or abuse. Nutritional screening: No deficits noted. Tuberculosis screening: No symptoms or risk factors identified. Assessment: Reassessment: Patient appears in no apparent distress at this time. Patient and/or bm8 family updated on plan of care and expected duration. Pain level reassessed. Patient is alert, oriented x 3, equal unlabored respirations, skin warm/dry/pink. Patient denies pain at this time. Patient states feeling better. Patient states symptoms have improved. Vital Signs: 01:02 BP 160 / 110; Pulse 99; Resp 18; Temp 99; Pulse Ox 100% ; Weight 99.79 kg; Height 5 ft. bm8 11 in. ; Pain 4/10; 01:13 BP 158 / 96; Pulse 95; Resp 18; Temp 99; Pulse Ox 99% ; Pain 0/10; bm8 01:02 Body Mass Index 30.68 (99.79 kg, 180.34 cm) bm8 01:02 Pain Scale: Adult bm8 01:13 Pain Scale: Adult bm8 Alexis Coma Score: 01:13 Eye Response: spontaneous(4). Motor Response: obeys commands(6). Verbal Response: bm8 oriented(5). Total: 15. ED Course: 00:29 Patient arrived in ED. [id number] 00:43 Ahmet Alford MD is Attending Physician. ec2 01:03 Triage completed. bm8 01:03 Arm band placed on right wrist. bm8 01:13 Richie Stroud, RN is Primary Nurse. bm8 01:13 Patient has correct armband on for positive identification. Placed in gown. Bed in low bm8 position. Call light in reach. Provided Education on: post er care. Client placed on continuous cardiac and pulse oximetry monitoring. NIBP monitoring applied. Pulse ox on. NIBP on. Door closed. Noise minimized. Warm blanket given. Pillow given. Verbal reassurance given. Head of bed elevated. 01:13 No provider procedures requiring assistance completed. Patient did not have IV access bm8 during this emergency room visit. Administered Medications: 01:15 Drug: Motrin (ibuprofen) 800 mg PO once Route: PO; bm8 01:15 Follow up: Response: No adverse reaction bm8 Medication: 01:13 VIS not applicable for this client. bm8 Outcome: 01:10 Discharge ordered by . ec2 01:13 Discharged to home ambulatory, with family, bm8 01:13 Condition: stable 01:13 Discharge instructions given to patient, family, Instructed on discharge instructions, follow up and referral plans. no drinking with medication, no driving heavy equipment, medication usage, safety practices, Demonstrated understanding of instructions, follow-up care, medications, 01:15 Patient left the ED. bm8 Signatures: Chrissy Mendoza [email or web address] Ahmet Alford MD MD 2 Stroud, Richie, RN RN bm8
[2024-08-14 01:19] VITALS: TEMP 99
[2024-08-14 01:20] VITALS: BP 158/96; O2SAT 99
== END 2024-08-14 01:15 | disposition home or self-care (01) ==
LOC: ER 00:26
DX: R45.1 Restlessness and agitation (principal); Z87.820 Personal history of traumatic brain injury

== ENCOUNTER 2024-09-10 01:33 | Emergency (ER) | payer SELFPAY ==
--- NOTE | 2024-09-10 01:59 | ER ---
Nurse's Notes [facility] Name: Kurt Christianson Age: 24 yrs Sex: Male : 2000 Arrival Date: 09/10/2024 Time: 01:33 Bed 14 Private MD: Diagnosis: Acute alcohol intoxication, Polysubstance abuse, Presentation: 09/10 01:34 Chief complaint: EMS states: drug abuse of unknown substance. Coronavirus screen: cp4 Client denies travel out of the [place] in the last 14 days. At this time, the client does not indicate any symptoms associated with coronavirus-19. Ebola Screen: Patient negative for fever greater than or equal to 101.5 degrees Fahrenheit, and additional compatible Ebola Virus Disease symptoms Patient denies exposure to infectious person. Patient denies travel to an Ebola-affected area in the 21 days before illness onset. No symptoms or risks identified at this time. Risk Assessment: Do you want to hurt yourself or someone else? Patient reports no desire to harm self or others. Onset of symptoms was September 10, 2024. 01:34 Method Of Arrival: [facility] 01:34 Acuity: ANABEL 4 cp4 01:35 Initial Sepsis Screen: Does the patient meet any 2 criteria? No. Patient's initial cp4 sepsis screen is negative. Does the patient have a suspected source of infection? No. Patient's initial sepsis screen is negative. Triage Assessment: 01:35 General: Appears in no apparent distress. comfortable, Behavior is appropriate for age, cp4 anxious. Pain: Denies pain. EENT: No signs and/or symptoms were reported regarding the EENT system. Neuro: Level of Consciousness is awake, alert, obeys commands, Oriented to person, place, time, situation. Cardiovascular: Patient's skin is warm and dry. Respiratory: Airway is patent Respiratory effort is even, unlabored. GI: No signs and/or symptoms were reported involving the gastrointestinal system. : No signs and/or symptoms were reported regarding the genitourinary system. Derm: No signs and/or symptoms reported regarding the dermatologic system. Musculoskeletal: No signs and/or symptoms reported regarding the musculoskeletal system. Historical: - Allergies: 01:35 Morphine; cp4 - PMHx: 01:35 Asthma; Dementia; HTN (Irregular heart rat); Irregular heart rate; Seizure; TBI; cp4 - PSHx: 01:35 Appendectomy; brain surgery; cp4 - Immunization history:: Adult Immunizations not up to date. - Infectious Disease History:: Denies. - Social history:: Smoking status: unknown. Screenin:41 [facility] ED Fall Risk Assessment (Adult) History of falling in the last 3 months, cp4 including since admission No falls in past 3 months (0 pts) Confusion or Disorientation No (0 pts) Intoxicated or Sedated No (0 pts) Impaired Gait No (0 pts) Mobility Assist Device Used No (0 pt) Altered Elimination No (0 pt) Score/Fall Risk Level 0 - 2 = Low Risk Oriented to surroundings, Maintained a safe environment, Assessed \\T\\ reinforced patient's understanding of fall precautions, Hourly rounding (assess needs \\T\\ fall precautionary measures) done. Abuse screen: Denies threats or abuse. Denies injuries from another. Nutritional screening: No deficits noted. Tuberculosis screening: No symptoms or risk factors identified. Assessment: : Reassessment: No changes from previously documented assessment. cp4 Overdose: 02:13 [facility] Suicide Severity Screening: "In the past month, have you wished you were cp4 or wished you could go to sleep and not wake up?" Patient responds "no." "In the past month, have you actually had any thoughts of killing yourself?" Patient responds "no." "In your lifetime, have you ever done anything, started to do anything, or prepared to do anything to end your life?" Patient responds "no.". Vital Signs: 01:35 BP 152 / 96; Pulse 112; Resp 18; Temp 98.6; Pulse Ox 99% ; Weight 104.33 kg; Height 5 cp4 ft. 10 in. ; 02:12 BP 146 / 94; Pulse 106; Resp 18; Pulse Ox 98% ; cp4 01:35 Body Mass Index 33.00 (104.33 kg, 177.8 cm) cp4 ED Course: 01:34 Patient arrived in ED. cp4 01:34 Kari Aguilera is Primary Nurse. cp4 01:35 Triage completed. cp4 01:35 Arm band placed on right wrist. Patient placed in an exam room, on a stretcher. cp4 01:36 Gómez Chase MD is Attending Physician. sp4 01:41 Bed in low position. Call light in reach. Side rails up X2. cp4 01:57 Rodolfo Tucker MD is Referral Physician. sp4 02:12 Provided Education on: alcohol intoxication. cp4 02:12 No provider procedures requiring assistance completed. Patient did not have IV access cp4 during this emergency room visit. Administered Medications: No medications were administered Medication: 01:41 VIS not applicable for this client. cp4 Outcome: 01:58 Discharge ordered by . sp4 02:12 Discharged to home ambulatory, cp4 02:12 Condition: stable 02:12 Discharge instructions given to patient, Instructed on discharge instructions, follow up and referral plans. Demonstrated understanding of instructions, follow-up care, 02:13 Patient left the ED. cp4 Signatures: Gómez Chase MD MD sp4 Kari Aguilera cp4 Corrections: (The following items were deleted from the chart) 02:13 02:13 [facility] Suicide Severity Screening: "In the past month, have you wished you were cp4 or wished you could go to sleep and not wake up?" Patient responds "yes." Based off client's responses, additional C-SSRS screening questions required. cp4
--- NOTE | 2024-09-10 01:59 | EDPHYS ---
Physician Documentation [facility] Name: Kurt Christianson Age: 24 yrs Sex: Male : 2000 Arrival Date: 09/10/2024 Time: 01:33 Bed 14 Private MD: ED Physician Gómez Chase HPI: 09/10 01:36 This 24 yrs old Male presents to ER via EMS with complaints of Drug Abuse. sp4 Historical: - Allergies: 01:35 Morphine; cp4 - PMHx: 01:35 Asthma; Dementia; HTN (Irregular heart rat); Irregular heart rate; Seizure; TBI; cp4 - PSHx: 01:35 Appendectomy; brain surgery; cp4 - Immunization history:: Adult Immunizations not up to date. - Infectious Disease History:: Denies. - Social history:: Smoking status: unknown. Vital Signs: 01:35 BP 152 / 96; Pulse 112; Resp 18; Temp 98.6; Pulse Ox 99% ; Weight 104.33 kg; Height 5 cp4 ft. 10 in. ; 02:12 BP 146 / 94; Pulse 106; Resp 18; Pulse Ox 98% ; cp4 01:35 Body Mass Index 33.00 (104.33 kg, 177.8 cm) cp4 MDM: 01:47 Medical Screening Exam initiated sp4 Administered Medications: No medications were administered Disposition Summary: 09/10/24 01:58 Discharge Ordered Notes: We advise you stop alcohol and drug use Location: Home sp4 Problem: new sp4 Symptoms: have improved sp4 Condition: Stable sp4 Diagnosis - Acute alcohol intoxication, Polysubstance abuse, sp4 Followup: sp4 - With: Rodolfo Tucker MD - When: 7 - 10 days - Reason: Recheck today's complaints Discharge Instructions: - Discharge Summary Sheet sp4 - Alcohol Intoxication, Zfup-vs-Lllt sp4 Forms: - Patient Portal Instructions sp4 Addendum: 09/11/2024 02:41 Addendum: 24-year-old male presents with complaint of marijuana and alcohol use. s p4 Patient reported he used marijuana alcohol sometime last night. ROS positive for drug and alcohol abuse.. 02:45 Addendum: Physical examination unremarkable. Patient stable for discharge from the s p4 emergency department. Advised to abstain from drug and alcohol abuse.. Signatures: Gómez Chase MD MD sp4 Kari Aguilera cp4
[2024-09-10 02:33] VITALS: TEMP 98.6
[2024-09-10 02:35] VITALS: BP 146/94; O2SAT 98
== END 2024-09-10 02:13 | disposition home or self-care (01) ==
LOC: ER 01:33
DX: F10.129 Alcohol abuse with intoxication, unspecified (principal); F19.10 Other psychoactive substance abuse, uncomplicated
CPT/HCPCS: 99283

== ENCOUNTER 2024-09-29 23:22 | Emergency (ER) | payer SELFPAY ==
[2011-09-17 11:55] VITALS: BP 121/70
--- NOTE | 2024-09-29 23:42 | ER ---
Nurse's Notes [facility] Name: Kurt Christianson Age: 24 yrs Sex: Male : 2000 Arrival Date: 09/29/2024 Time: : Bed IW10 [facility] MD: Diagnosis: Presentation: 09/29 23:28 Note pt called from lobby. no response. lg3 23:35 Note pt called from lobby. no response. per registration, PT left after providing lg3 registration information. provider notified. ED Course: 23:24 Patient arrived in ED. jj6 23:24 Musa Mayer MD is Attending Physician. rt Administered Medications: No medications were administered Outcome: 23:42 Patient left the ED. br2 Signatures: Analisa Lopez RN RN lg3 Chrissy Mendoza [facility] Musa Mayer MD MD rt Cheyenne Fuentes RN RN br2 Corrections: (The following items were deleted from the chart) 23:41 23:40 Note pt called from lobby. no response lg3 lg3 23:42 23:35 Note pt called from lobby. no response. per registration, PT left after signing lg3 registration paperwork. provider notified lg3
== END 2024-09-29 23:42 | disposition left against medical advice (07) ==
LOC: ER 23:22
DX: Z02.9 Encounter for administrative examinations, unspecified (principal)